=== PATIENT | male | born 1930 | race African-American/Black ===

== ENCOUNTER 2017-03-03 06:11 | Day surgery (SDC) | payer MEDICARE, OTHER ==
--- NOTE | 2017-03-01 19:30 | Pre-op HX & Phy Repo 2 SIG ---
DATE OF ADMISSION: 03/03/2017 PREOPERATIVE DIAGNOSIS: Total retinal detachment, left eye. BRIEF NOTE: This is a first [place] admission for this patient, who is an 86-year-old gentleman, who complained of decreased vision in the left eye for the last week. On examination, he was found to have a dense total retinal detachment on that side. His past ocular history is remarkable for cataract surgery done previously in either eye. PAST MEDICAL HISTORY: Remarkable for diabetes and hypertension. MEDICATIONS: He is currently on gabapentin, Lantus Solostar, and NovoLog as well as antihypertensive medications. ALLERGIES: He has no known allergies. Physical Examination: Best vision at the time of admission was 20/70 in the right eye and hand motions in the left with pressures of 15 and 7. The anterior segment on the right was quiet with posterior chamber lens. On the left, there was significant loss of peripheral visual field. The anterior segment showed a lens implant in position. Fundus examination of the right eye appeared normal. The left eye showed a total retinal detachment with extensive subretinal fluid. There was a horseshoe tear at the 6:30 position. General physical examination will be performed by the patient's private medical doctor. ASSESSMENT: Total retinal detachment, left eye. PLAN: The plan is to perform a pars plana vitrectomy with scleral buckling, endo drainage, endolaser, and either placement of silicone oil intraocular gas. The risks and benefits of surgery gone over the patient and his family including potential for infection, inability to repair the retina, glaucoma, and the possibility of loss of the eye. The risk of anesthesia was discussed. The patient understands and consents to the surgery, which will be performed on Friday. Simone Coned M.D. DR: DONNELL JOB#: [id number] CC:
[~2017-03-03] VITALS: Ht 157.5 cm; Wt 67.1 kg
[2017-03-03] VITALS (9 sets, daily range): BP systolic 145–163; BP diastolic 61–75
--- NOTE | 2017-03-03 06:24 | Pre-Procedure Note/Attestation ---
Pre-Procedure Note/Attestation Complete Prior to Procedure Planned Procedure: left Procedure Narrative: PPV, scleral buckle, endolaser, silicone oil injection L eye Indications for Procedure Pre-Operative Diagnosis: Total retinal detachment Left eye Attestation I attest that I discussed the nature of the procedure; its benefits; risks and complications; and alternatives (and the risks and benefits of such alternatives ), prior to the procedure, with the patient (or the patient's legal scheduling representative). I attest that, if there was a reasonable possibility of needing a blood transfusion, the patient (or the patient's legal scheduling representative) was given the [facility] standardized written summary, pursuant to the [place] Blood Safety Act ([place] Health and Safety Code # 1645, as amended). I attest that I re-evaluated the patient just prior to the surgery and that there has been no change in the patient's H&P, except as documented below: SEGUNDO IGLESIAS Mar 03, 2017 06:24
[2017-03-03] MEDS ORDERED: Pred Forte 1% Opth Susp 1ml RIGHT EYE ONE (07:00)
[2017-03-03] MEDS ORDERED: Povidone-Iodine 5% opth solution ONE (07:07)
[2017-03-03] MEDS ORDERED: GABAPENTIN100 MG ORAL (07:13)
[2017-03-03] MEDS ORDERED: FUROSEMIDE40 MG ORAL (07:13)
[2017-03-03] MEDS ORDERED: APRESOLINE10 MG ORAL (07:13)
[2017-03-03] MEDS ORDERED: LISINOPRIL40 MG ORAL (07:13)
[2017-03-03] MEDS ORDERED: Cyclopentolate 1% Opth Sol ONE (07:15)
[2017-03-03] MEDS ORDERED: Phenylephrine 2.5% Op Soln ONE (07:16)
[2017-03-03] MEDS ORDERED: Flurbiprofen 0.03% Opth Sol 2.5ml ONE (07:16)
[2017-03-03] MEDS ORDERED: Vigamox Opth Soln ONE (07:22)
[2017-03-03] MEDS: Vigamox Opth Soln LEFT EYE SCH ×3 (07:23→07:38)
[2017-03-03] MEDS: Phenylephrine 2.5% Op Soln LEFT EYE SCH ×3 (07:24→07:38)
[2017-03-03] MEDS: Cyclopentolate 1% Opth Sol LEFT EYE SCH ×3 (07:24→07:39)
[2017-03-03] MEDS: Flurbiprofen 0.03% Opth Sol 2.5ml LEFT EYE SCH ×3 (07:24→07:38)
[2017-03-03] MEDS ORDERED: LANTUS SOL100 UNIT/1 SUBQ (07:37)
[2017-03-03] MEDS ORDERED: NOVOLOG100 UNIT/3 SUBQ (07:37)
[2017-03-03] MEDS ORDERED: PREDNISONE20 M1 PO (07:38)
[2017-03-03] MEDS ORDERED: SENNA8.6 M2 PO (07:38)
[2017-03-03] MEDS ORDERED: Propofol 10mg/ml 20ml IV ONE (08:00)
[2017-03-03] MEDS ORDERED: NS Irrig 1000ml ONE (08:00)
[2017-03-03] MEDS ORDERED: Sterile Water Irrig 1000ml IRRIG ONE (08:00)
[2017-03-03] MEDS ORDERED: Midazolam 2mg/2ml Inj ONE (08:00)
[2017-03-03] MEDS ORDERED: LR 1000ml ONE (08:00)
[2017-03-03] MEDS ORDERED: LR 1000ml 1,000 ML IVLG SCH (09:27)
[2017-03-03] MEDS ORDERED: fentaNYL 100 mcg/2 mL IV PRN (09:30)
--- NOTE | 2017-03-03 09:35 | Anethesia Preoperative Eval ---
Anesthesia Pre-op PMH/ROS General Date of Evaluation: Mar 03, 2017 Time of Evaluation: 08:51 Anesthesiologist: Bari ASA Score: ASA 3 Mallampati Score Class I : Soft palate, uvula, fauces, pillars visible Class II: Soft palate, uvula, fauces visible Class III: Soft palate, base of uvula visible Class IV: Only hard plate visible Mallampati Classification: Class II Surgeon: Amaya Diagnosis: Retinal detachment left eye Surgical Procedure: Vitrectomy, scleral buckle, endolaser Family History: no anesthesia problems Allergies: Coded Allergies: No Known Allergies (Unverified , 02/28/17) Medications: see eMAR Past Medical History Cardiovascular: Reports: HTN, arrhythmia - Atrial tachycardia, other - Episode of fluid overlode thought to be secondary to Amlodipine Pulmonary: Denies: COPD, DEBORAH, asthma, other Gastrointestinal/Genitourinary: Denies: CRI, ESRD, GERD, other Neurologic/Psychiatric: Denies: CVA, TIA, dementia, depression/anxiety, other Endocrine: Reports: DM, Denies: hypothyroidism, other, steroids HEENT: Denies: [place] (L), CROW (R), cataract (L), cataract (R), glaucoma, other Hematology/Immune: Denies: DVT, anemia, bleeding disorder, other Musculoskeletal/Integumentary: Denies: DDD, DJD, OA, RA, edema, other PMH Narrative: DM, HTN, Atrial tachycardia, fluid overload, Pemphigus Foliaceous PSxH Narrative: Eye surgery, colonoscopy/polypectomy Anesthesia Pre-op Phys. Exam Physician Exam Last Vital Signs Date Time Temp Pulse Resp B/P Pulse Ox O2 Delivery O2 Flow Rate FiO2 03/03/17 07:19 97.0 69 20 145/70 98 Room Air Constitutional: NAD Neurologic: other - Hearing impaired Cardiovascular: RRR, no M/R/G Respiratory: CTA Gastrointestinal: S/NT/ND Airway Exam Mallampati Score: Class II MO: full ROM: full Teeth: intact Anesthesia Pre-op A/P Labs Elevated blood glucose Accucheck 128 Studies Pre-op Studies: EKG - SR, no acute changes Risk Assessment & Plan Assessment: Retinal tear in a diabetic, hypertensive 87 yo male Plan: MAC, TIVA Status Change Before Surgery: No Pre-Antibiotics Drug: None KYRA MAY M.D. Mar 03, 2017 09:35
--- NOTE | 2017-03-03 09:36 | Immediate Post-Op Evaluation ---
Immediate Post-Op Evalulation Immediate Post-Op Evalulation Procedure: Vitrectomy, scleral buckle, endolaser left eye Date of Evaluation: Mar 03, 2017 Time of Evaluation: 11:00 IV Fluids: 300 Blood Pressure Systolic: 154 Blood Pressure Diastolic: 69 Pulse Rate: 73 Respiratory Rate: 18 O2 Sat by Pulse Oximetry: 100 Temperature (Fahrenheit): 97.1 Pain Score (1-10): 0 Nausea: No Vomiting: No Complications No complication Patient Status: awake, patent, none Hydration Status: adequate Drug: None KYRA MAY M.D. Mar 03, 2017 09:36
[2017-03-03] MEDS ORDERED: BSS 500ml btl ONE ×2 (10:02→11:11)
[2017-03-03] MEDS ORDERED: EPINEPHrine 1mg/1ml Amp ONE ×2 (10:02→11:12)
[2017-03-03] MEDS ORDERED: Pilocarpine 4% Opth Soln ONE (10:43)
--- NOTE | 2017-03-03 11:06 | 48 Hour Post Anesthesia Eval ---
Post Anesthesia Evaluation Procedure: Vitrectomy, scleral buckle, endolaser left eye Date of Evaluation: Mar 03, 2017 Time of Evaluation: 11:30 Blood Pressure Systolic: 155 0: 68 Pulse Rate: 77 Respiratory Rate: 17 O2 Sat by Pulse Oximetry: 99 Airway: patent Nausea: No Vomiting: No Pain Intensity: 0 Hydration Status: adequate Cardiopulmonary Status: stable Follow-up Care/Observations: As per surgery Post-Anesthesia Complications: No anesthetic complication Follow-up care needed: N/A KYRA MAY M.D. Mar 03, 2017 11:06
--- NOTE | 2017-03-03 11:09 | Brief Operative Note ---
Immediate Post Operative Note Operative Note Chief Complaint: Loss of vision L eye Pre-op Diagnosis: Total retinal detachment Left eye Procedure: PPV, scleral buckle (240, 297, 70 sleeve), Endolaser 487 spots, endodrainage, Silicone oil injection 1000 centistokes, iris retractor placement and removal L eye Post-op Diagnosis: Same Post-op Diagnosis: same as pre-op Surgeon: aviva Anesthesiologist: Agustín Anesthesia: MAC Specimen: none Complications: none Condition: stable Estimated Blood Loss: none Drains: none Implant(s) used?: Yes - 287, 240. 70 plus 1000 CS silicone oil SEGUNDO IGLESIAS Mar 03, 2017 11:09
[2017-03-03] MEDS ORDERED: Dexamethasone 4mg/ml vial ONE (11:12)
[2017-03-03] MEDS ORDERED: BSS 15ml BTL ONE (11:12)
[2017-03-03] MEDS ORDERED: Bupivacaine 0.75% 30ml vial INJ ONE (11:12)
[2017-03-03] MEDS ORDERED: Maxitrol Opth Oint 3.5gm ONE (11:12)
[2017-03-03] MEDS ORDERED: Sodium Hyaluronate 10 mg/ml 0.85ml ONE (11:12)
[2017-03-03] MEDS ORDERED: Lidocaine 2% MPF 5ml Vial INJ ONE (11:12)
[2017-03-03] MEDS ORDERED: LR 1000ml 1,000 ML IV SCH (11:27)
[2017-03-03] MEDS ORDERED: Norco 5mg/325mg tab ORAL PRN (14:00)
--- NOTE | 2017-03-03 16:45 | Operative Note - Dictated ---
DATE OF OPERATION: 03/03/2017 PREOPERATIVE DIAGNOSIS: Total retinal detachment, left eye. POSTOPERATIVE DIAGNOSIS: Total retinal detachment, left eye. PROCEDURES PERFORMED: 1. Pars plana vitrectomy. 2. Scleral buckle. 3. Iris retractor placement and removal. 4. Endo drainage. 5. Peripheral cryopexy. 6. Endolaser. 7. Silicone oil injection, left eye. SURGEON: Simone Conde M.D. ASSEMBLER TYPE BAR AND SEGMENT: None. ANESTHESIA: Local. ANESTHESIOLOGIST: Dr. Randolph. JUSTIFICATION FOR SURGERY: This 86-year-old gentleman presented last week with a total retinal detachment in the left eye. BRIEF NOTE: The patient brought to the operative room, placed on operating room table in supine position. After a time-out was performed and agreed upon by the staff, an initial monitoring secured by Dr. Randolph, retrobulbar and Van Lint blocks were given in the standard way. When the blocks taken effect, he was prepped and draped in normal manner. A lid speculum was inserted in to the left eye. A 360-degree peritomy was then cut with relaxation incisions at the 3 and 9 o'clock positions. The muscles were isolated and turned on white and black ties. The quadrants were explored and found to be without scleral thinning. Because of the small pupil, iris retractors were placed at the four major quadrant and the chamber deepened with Healon. Using indirect ophthalmoscope, the eye was examined and a large horseshoe tear was found at the 6:30 position. This was marked on the sclera and gentle cryopexy was used to treat the open break. Sutures were then prepared for a scleral buckle. A 5-0 nylon mattress sutures were placed 6 mm apart in both inferior quadrants in compensating the tear and 2 and 3 mm apart up above. A 240 band was brought around the eye and secured with a 70 sleeve supranasally. A segment of 287 tire was placed beneath the inferior rectus muscle and the two mattress sutures and secured. All other knots were secured and rotated posteriorly and the buckle was tightened to moderate height. The eye was then entered with the vitrector and a central core vitrectomy was performed followed by peripheral vitrectomy shaving vitreous clean the inferior break. A site was selected for endo drainage just nasal to the optic nerve and this was cauterized. An air-fluid exchange was then performed, flattening the retina nicely with drainage through the posterior retinotomy. The retinal tear was noted to nicely flatten on the buckle and additional laser was placed to completely surround this area and another suspicious area at the 5 o'clock position. No other breaks were seen. The retinotomy was then surrounded by three rows of laser. Because of the inferior nature of the location of the break and the patient's age and poor ability to position, a gas bubble was elected to place silicone oil. One thousand centistokes oil was chosen and the eye was filled to roughly 95% and the left in normal tension. The sclerotomies were then all closed with 8-0 Vicryl suture. The ends of the buckle were trimmed after final removal of looseness from the encircling band. Iris retractors were also removed as was Healon, which was evacuated from the anterior chamber. All bridle sutures were removed and the conjunctiva and tenons were secured with 6-0 plain catgut, interrupted. Subconjunctival Decadron and gentamicin were then injected and Maxitrol, pilocarpine 4%, and prednisolone drops were instilled. The eye was patched and shielded and the patient was taken to recovery in excellent condition to be placed in a face-down position. Simone Conde M.D. DR: VENANCIO JOB#: [id number] CC:
== END 2017-03-03 13:00 | disposition home or self-care (01) ==
LOC: SUR 06:11
DX: H33.012 Retinal detachment with single break, left eye (principal); E11.9 Type 2 diabetes mellitus without complications; Z79.4 Long term (current) use of insulin; I10 Essential (primary) hypertension; I47.1 Supraventricular tachycardia; L10.2 Pemphigus foliaceous; E78.5 Hyperlipidemia, unspecified; D89.9 Disorder involving the immune mechanism, unspecified; Z85.46 Personal history of malignant neoplasm of prostate
CPT/HCPCS: 67108; 82962; J0171; J1100; J2250; J2704; J3470; J3490; J7120; 94003; 94150

== ENCOUNTER 2017-04-02 06:42 | Day surgery (SDC) | payer MEDICARE, OTHER ==
[~2017-04-02] VITALS: Ht 165.1 cm; Wt 72.6 kg
[2017-04-02] VITALS (8 sets, daily range): BP systolic 127–142; BP diastolic 53–87
--- NOTE | 2017-04-02 06:41 | Pre-Procedure Note/Attestation ---
Pre-Procedure Note/Attestation Complete Prior to Procedure Planned Procedure: left Procedure Narrative: PPV, silicone oil removal and replacement, endolaser, membrane peel, revision of scleral buckle L eye. 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 I attest that, if there was a reasonable possibility of needing a blood transfusion, the patient (or the patient's legal inbound sales representative) was given the [place] [facility] standardized written summary, pursuant to the Eddie [place] Blood Safety Act ([place] Health and Safety Code # 1645, as amended). I attest that I re-evaluated the patient just prior to the surgery and that there has been no change in the patient's H&P, except as documented below: SEGUNDO IGLESIAS Apr 02, 2017 06:41
[~2017-04-02 06:42] MED LIST: APRESOLINE10 MG ORAL; FUROSEMIDE40 MG ORAL; GABAPENTIN100 MG ORAL; LANTUS SOL100 UNIT/1 SUBQ; LISINOPRIL40 MG ORAL; NOVOLOG100 UNIT/3 SUBQ; PREDNISONE20 M1 PO; Pred Forte 1% Opth Susp 1ml LEFT EYE SCH; SENNA8.6 M2 PO
[2017-04-02] MEDS ORDERED: Vigamox Opth Soln ONE (06:56)
[2017-04-02] MEDS ORDERED: Phenylephrine 2.5% Op Soln ONE (06:57)
[2017-04-02] MEDS ORDERED: Cyclopentolate 1% Opth Sol ONE (06:57)
[2017-04-02] MEDS ORDERED: Flurbiprofen 0.03% Opth Sol 2.5ml ONE (06:57)
[2017-04-02] MEDS: Phenylephrine 2.5% Op Soln LEFT EYE SCH ×3 (07:14→07:28)
[2017-04-02] MEDS: Flurbiprofen 0.03% Opth Sol 2.5ml LEFT EYE SCH ×3 (07:15→07:28)
[2017-04-02] MEDS: Vigamox Opth Soln LEFT EYE SCH ×3 (07:15→07:28)
[2017-04-02] MEDS: Cyclopentolate 1% Opth Sol LEFT EYE SCH ×3 (07:15→07:28)
[2017-04-02] MEDS ORDERED: BSS 15ml BTL ONE ×2 (07:21→10:14)
[2017-04-02] MEDS ORDERED: Povidone-Iodine 5% opth solution ONE (07:21)
[2017-04-02] MEDS ORDERED: BSS 500ml btl ONE (07:21)
--- NOTE | 2017-04-02 08:30 | Pre-op HX & Phy Repo 2 SIG ---
DATE OF ADMISSION: 04/02/2017 POSTOPERATIVE DIAGNOSIS: Recurrent retinal detachment, left eye. BRIEF NOTE: This is a second [place] admission for this patient, who is a very nice 86-year-old gentleman, who was noted to have a significant retinal detachment in the left eye. This was initially repaired on 03/03/2017 with silicone oil. Subsequent to this, he developed an area of preretinal fibrosis and elevation of the retina down below. He is admitted for repeat vitrectomy with retinotomy and repair of the recurrent detachment. PAST MEDICAL HISTORY: Remarkable for diabetes and hypertension. ALLERGIES: He has no known allergies. SOCIAL HISTORY: He does not smoke or drink. PHYSICAL EXAMINATION: Best vision at the time of the visit was 20/50 in the right eye and counting fingers at 5 feet in the left eye with pressures in the left to be 11. The anterior segment on the right was remarkable for posterior chamber lens, well positioned. The left showed a similar lens. Fundus exam of the right eye was benign. The left eye showed recurrent fluid and an area of star-fold formation just below the arcade with the fluid extending up to below the arcade with open breaks above the buckle. General physical examination will be repeated by the patient's personal physician. ASSESSMENT: Recurrent retinal detachment, left eye silicone oil. PLAN: The plan is to perform a repeat pars plana vitrectomy with peeling of preretinal fibrosis and possible inferior retinotomy with flattening of the retina and additional silicone oil. The risks and benefits of surgery were gone over with the patient and family including potential infection, hemorrhage, glaucoma, the inability to repair the retina, and the possibility of loss of the eye. The risk of anesthesia was discussed. The patient understands and consents to the surgery, which will be performed on tomorrow morning. Simone Conde M.D. DR: GA JOB#: [id number] CC:
[2017-04-02] MEDS ORDERED: Propofol 10mg/ml 20ml IV ONE (10:00)
[2017-04-02] MEDS ORDERED: Metoclopramide 10mg/2ml Inj ONE (10:00)
[2017-04-02] MEDS ORDERED: Solu-MEDROL 40mg Inj ONE (10:00)
[2017-04-02] MEDS ORDERED: Lidocaine 1% MPF 10mg/ml 5ml ONE (10:00)
[2017-04-02] MEDS ORDERED: LR 1000ml ONE (10:00)
[2017-04-02] MEDS ORDERED: fentaNYL 100 mcg/2 mL IV ONE (10:00)
[2017-04-02] MEDS ORDERED: Norco 5mg/325mg tab ORAL PRN (10:15)
--- NOTE | 2017-04-02 11:13 | Anethesia Preoperative Eval ---
Anesthesia Pre-op PMH/ROS General Date of Evaluation: Apr 02, 2017 Time of Evaluation: 11:12 Anesthesiologist: miroslava ASA Score: ASA 2 Mallampati Score Class I : Soft palate, uvula, fauces, pillars visible Class II: Soft palate, uvula, fauces visible Class III: Soft palate, base of uvula visible Class IV: Only hard plate visible Mallampati Classification: Class II Anesthesia History: none Family History: no anesthesia problems Allergies: Coded Allergies: No Known Allergies (Unverified , 02/28/17) Medications: see eMAR Past Medical History Cardiovascular: Reports: HTN, arrhythmia Pulmonary: Denies: asthma, COPD, DEBORAH, other Gastrointestinal/Genitourinary: Denies: GERD, CRI, ESRD, other Neurologic/Psychiatric: Denies: dementia, CVA, depression/anxiety, TIA, other Endocrine: Reports: DM HEENT: Reports: [place] (L), other - retinal detachment Hematology/Immune: Denies: anemia, DVT, bleeding disorder, other PSxH Narrative: vitrectomy Anesthesia Pre-op Phys. Exam Physician Exam Last Vital Signs Date Time Temp Pulse Resp B/P (MAP) Pulse Ox O2 Delivery O2 Flow Rate FiO2 04/02/17 07:25 98.2 62 19 136/64 99 Room Air Constitutional: NAD Neurologic: CN 2-12 intact Cardiovascular: RRR Respiratory: CTA Gastrointestinal: S/NT/ND Airway Exam Mallampati Score: Class II MO: full ROM: full Dentures: no upper, no lower Anesthesia Pre-op A/P Labs Accucheck bs= 166 Studies Pre-op Studies: EKG - sr Risk Assessment & Plan Plan: general - case projected to be 2 hours Status Change Before Surgery: No Pre-Antibiotics Drug: none MARIA CRISHIVANI LEWIS ADMINISTRATION PHYSICIAN Apr 02, 2017 11:13
--- NOTE | 2017-04-02 12:23 | Immediate Post-Op Evaluation ---
Immediate Post-Op Evalulation Immediate Post-Op Evalulation Procedure: left eye vitrectomy Date of Evaluation: Apr 02, 2017 Time of Evaluation: 12:19 IV Fluids: 800 Blood Pressure Systolic: 170 Blood Pressure Diastolic: 60 Pulse Rate: 67 Respiratory Rate: 17 O2 Sat by Pulse Oximetry: 100 Temperature (Fahrenheit): 97.2 Nausea: No Vomiting: No Complications none Patient Status: awake, reacts, patent Hydration Status: adequate Drug: none TARRILLION,SHIVANI CLINICAL ADMINISTRATOR Apr 02, 2017 12:23
--- NOTE | 2017-04-02 13:47 | 48 Hour Post Anesthesia Eval ---
Post Anesthesia Evaluation Procedure: left eye vitrectomy Date of Evaluation: Apr 02, 2017 Time of Evaluation: 13:47 Blood Pressure Systolic: 127 0: 70 Pulse Rate: 67 Respiratory Rate: 14 O2 Sat by Pulse Oximetry: 99 Airway: patent Nausea: No Vomiting: No Hydration Status: adequate Cardiopulmonary Status: stable Mental Status/LOC: patient returned to baseline Post-Anesthesia Complications: none Follow-up care needed: N/A SHIVANI MICHELLE CRNA Apr 02, 2017 13:47
[2017-04-02] MEDS ORDERED: Dexamethasone 4mg/ml vial ONE (13:56)
[2017-04-02] MEDS ORDERED: Tetracaine 0.5% Opth Soln ONE (13:56)
[2017-04-02] MEDS ORDERED: Bupivacaine 0.75% 30ml vial INJ ONE (13:57)
[2017-04-02] MEDS ORDERED: EPINEPHrine 1mg/1ml Amp ONE (13:57)
[2017-04-02] MEDS ORDERED: Lidocaine 2% MPF 5ml Vial INJ ONE (13:57)
[2017-04-02] MEDS ORDERED: Maxitrol Opth Oint 3.5gm ONE (13:58)
[2017-04-02] MEDS ORDERED: Sodium Hyaluronate 10 mg/ml 0.85ml ONE (13:59)
--- NOTE | 2017-04-03 10:00 | Brief Operative Note ---
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
[2017-04-03] MEDS ORDERED: DOCUSATE SODIU100 MG ORAL (12:39)
[2017-04-03] MEDS ORDERED: FERROUS SULFAT325 MG ORAL (12:39)
[2017-04-03] MEDS ORDERED: VITAMIN D1000 UNI1 ORAL (12:39)
--- NOTE | 2017-04-04 10:45 | Operative Note - Dictated ---
DATE OF OPERATION: 04/02/2017 PREOPERATIVE DIAGNOSIS: Recurrent retinal detachment with PVR, left eye. POSTOPERATIVE DIAGNOSIS: Recurrent retinal detachment with PVR, left eye. PROCEDURES: 1. Pars plana vitrectomy. 2. Revision of scleral buckle. 3. Removal and replacement of silicone oil. 4. Membrane dissection. 5. Endolaser, left eye. SURGEON: Simone Conde M.D. COMMISSIONS MANAGER: None. ANESTHESIA: LMA general. ANESTHESIOLOGIST: Janna GARCIA. Justification For Surgery: This 86-year-old gentleman presented last month with a retinal detachment with 01:09. The vitrectomy was performed, but the hole reopened due to traction and early PVR. He is admitted for repair. BRIEF NOTE: The patient was brought to the operative room, placed on operating room table in the supine position. After discussion with nurse Stanton regarding the planned procedure and the duration, it was elected to proceed with LMA general anesthesia which the patient was informed of. After a time-out was performed and agreed upon by the staff, anesthesia was induced by the anesthesia person. The patient was then prepped and draped in the normal manner. Scleral depression was done. An open retinal break was noted down below with areas of traction. It was elected to reposition the scleral buckle. A 200-degree peritomy was performed with relaxation incisions at 10 and 2. Careful dissection was carried out with both horizontal recti and the inferior rectus muscle isolated. Sutures were placed to reposition the buckle roughly 5 mm more posteriorly down below. The original sutures were removed and the buckle was sewn into this position with moderately high buckling effect. The holes were examined and found to be well on the crest of the buckle. Preparation was made for a vitrectomy. Using a 23-gauge trocar system, cannulas were placed in all except the infranasal quadrant. Infusion secured inferotemporally. Attempt was made to peel membranes beneath the silicone oil but this was met with limited success. It was elected to remove oil and proceed. This was done with the viscous fluid extractor. Areas of preretinal fibrosis and the inferior retina were gently dissected away and removed with forceps. The vitreous cutter was also used to shave residual vitreous flush with the retina itself. The retina was noted to be freely mobile at this point. The areas of breaks were marked with Endo cautery, and also an area selected just nasal to the optic nerve for endo drainage. An air-fluid exchange was performed and the retina was noted to flattened nicely on the buckle. Endolaser was used to surround the areas of the retinal break and also form the barricade along the inferior buccal. Additional laser was used to treat around the posterior retinotomy. At this juncture, silicone oil injection was performed and the pressure was normalized with about a 95% oil filled and the retina remaining soft. The sclerotomies have been closed with 8-0 Vicryl suture after the cannulas were removed. The conjunctiva and tenons capsule were gently pulled up and secured with 6-0 plain catgut. Subconjunctival Decadron and gentamicin were injected inferiorly and topical atropine, prednisolone, and moxifloxacin drops were instilled. Maxitrol ointment was then was then placed in the eye was patched and shielded. The patient was taken to recovery after smooth extubation in excellent condition. He was to be in face-down position. Please note that a total of 05:01 laser 05:03 were applied. Simone Conde M.D. DR: FELISHA JOB#: [id number] CC:
== END 2017-04-02 14:20 | disposition home or self-care (01) ==
LOC: SUR 06:42
DX: H33.8 Other retinal detachments (principal); E11.9 Type 2 diabetes mellitus without complications; I10 Essential (primary) hypertension; I49.9 Cardiac arrhythmia, unspecified; H91.90 Unspecified hearing loss, unspecified ear
CPT/HCPCS: 82962; 94003; 94150; J2405; J2765

== ENCOUNTER 2017-04-03 11:49 | Inpatient (IN) | payer MEDICARE, OTHER ==
[~2017-04-03] VITALS: Ht 165.1 cm; Wt 81.6 kg
[2017-04-03] VITALS (10 sets, daily range): BP systolic 114–184; BP diastolic 41–72
[~2017-04-03 11:49] MED LIST changes: -Pred Forte 1% Opth Susp 1ml LEFT EYE SCH
[2017-04-03] MEDS ORDERED: VITAMIN D1000 UNI1 ORAL (12:39)
[2017-04-03] MEDS ORDERED: FERROUS SULFAT325 MG ORAL (12:39)
[2017-04-03] MEDS ORDERED: DOCUSATE SODIU100 MG ORAL (12:39)
[2017-04-03 12:46] LABS: MEAN CORPUSCULAR HEMOGLOBIN 29.7 PG (27.0-31.0); MEAN CORPUSCULAR HGB CONC 32.6 G/DL (32.0-36.0); MEAN CORPUSCULAR VOLUME 91 FL (80-99); MEAN PLATELET VOLUME 8.1 FL (6.5-10.1); PLATELET COUNT 140 K/UL (150-450); RED BLOOD COUNT 4.05 M/UL (4.70-6.10); RED CELL DISTRIBUTION WIDTH 14.3 % (11.6-14.8); WHITE BLOOD COUNT 8.4 K/UL (4.8-10.8)
[2017-04-03 13:04] LABS: ALANINE AMINOTRANSFERASE 15 U/L (3-41); ALBUMIN/GLOBULIN RATIO 1.2 (1.0-2.7); ANION GAP 12 (5-15); ASPARTATE AMINO TRANSFERASE 22 U/L (5-40); CALCIUM 9.3 mg/dL (8.6-10.2); CARBON DIOXIDE 24 mEQ/L (20-30); CHLORIDE 95 mEQ/L (98-107); CREATININE 0.8 mg/dL (0.7-1.2); HEMOLYSIS 54; LIPASE 19 U/L (< 60); POTASSIUM 4.3 mEQ/L (3.4-4.9); SODIUM 131 mEQ/L (135-145); TOTAL PROTEIN 6.3 g/dL (6.6-8.7); TROPONIN I < 0.30 ng/mL (<=0.30)
--- NOTE | 2017-04-03 13:14 | Diagnostic Imaging Report ---
Indication: PAIN cough Technique: One view of the chest Comparison: none Findings: Inspiration is suboptimal, with atelectatic changes at both lung bases. Lungs and pleural spaces are otherwise clear. Heart is borderline enlarged. There are is tortuous.. Impression: Hypoventilatory exam with bilateral basilar atelectasis No acute process otherwise Borderline cardiomegaly
[2017-04-03 13:23] LABS: LYMPHOCYTES % (MANUAL) 13 % (20-45); NEUTROPHILS % (MANUAL) 81 % (45-75); TOTAL CELLS COUNTED 100
[2017-04-03 13:24] LABS: BAND NEUTROPHILS % (MANUAL) 0 % (0-8); BASOPHILS % (MANUAL) 0 % (0-2); EOSINOPHILS % (MANUAL) 0 % (0-3); PLATELET MORPHOLOGY NORMAL
[2017-04-03 13:26] LABS: PLATELET ESTIMATE DECREASED
--- NOTE | 2017-04-03 13:34 | Emergency Room Report ---
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 History is provided mostly by patient's daughters. Daughter states that patient has had decreased by mouth intake for the last 3 days. Mild nausea and about one episode of vomiting per day nonbilious nonbloody. No diarrhea. No fever or chills. Yesterday patient had a left eye surgery for retinal detachment. This morning patient woke up with a mild headache, they went to the selling specialist who examined the patient and took his eye pressures, was found to be normal, and was sent to the emergency room. Patient complaining of mild throbbing headache , gradual in nature, no exacerbating or relieving factors. Daughter states that patient has not been confused, has still been conversing appropriately, there was no trauma. Currently denying any abdominal pain Allergies: Coded Allergies: No Known Allergies (Unverified , 02/28/17) Patient History Past Medical History: see triage record Past Surgical History: none Pertinent Family History: none Reviewed Nursing Documentation: PMH: Agreed, PSxH: Agreed Nursing Documentation-PMH Past Medical History: No History, Except For Hx Cardiac Problems: Yes Hx Hypertension: Yes Hx Diabetes: Yes Hx Cancer: No Review of Systems All Other Systems: negative except mentioned in HPI Physical Exam Vital Signs Date Time Temp Pulse Resp B/P (MAP) Pulse Ox O2 Delivery O2 Flow Rate FiO2 04/03/17 11:41 68 18 206/72 94 Room Air Sp02 EP Interpretation: reviewed, normal General Appearance: normal inspection, well appearing, no apparent distress, alert, GCS 15, non-toxic Head: normocephalic, atraumatic Eyes: bilateral eye normal inspection, bilateral eye PERRL, bilateral eye EOMI ENT: normal ENT inspection, normal pharynx, normal voice, moist mucus membranes Neck: normal inspection, full range of motion, supple Respiratory: normal inspection, lungs clear, normal breath sounds, no respiratory distress, no retraction, no wheezing, speaking full sentences, chest symmetrical Cardiovascular #1: normal inspection, regular rate, rhythm, no edema, normal capillary refill Cardiovascular #2: 2+ radial (R), 2+ radial (L) Gastrointestinal: normal inspection, non tender, soft, non-distended, no guarding Genitourinary: no CVA tenderness Musculoskeletal: normal inspection, back normal, normal range of motion, non- tender Neurologic: normal inspection, alert, oriented x3, responsive, motor strength/ tone normal, sensory intact, normal gait, speech normal Psychiatric: normal inspection, judgement/insight normal, memory normal Skin: normal inspection, normal color, no rash, warm/dry, well hydrated, normal turgor Medical Decision Making Diagnostic Impression: Primary Impression: Decreased oral intake Additional Impressions: Dehydration Headache ER Course 86 yo male with decreased oral intake, one day of headache DDX: Electrolyte imbalance, dehydration Headache could be related to above versus intracranial disease Currently patient is neurologically intact At this time abdomen is soft nontender, no concern with acute intra-abdominal surgical pathology, we'll hold CT for now Plan: Obtain labs, ua, EKG, CXR, CT head ER course: afeb 98.4 Patient has been monitored during ED stay, HD stable Patient was treated for his headache with Tylenol, patient was given IV fluids Patient remains neurologically intact, conversing appropriately with his daughters. Disposition: Patient is to be admitted to med surg. Patient's selling specialist sent in Dr. Franks who is on staff at [facility]. Dr. franks said that he will be admitting patient. Please note that this Emergency Department Report was dictated using [email or web address] press operator technology software, occasionally this can lead to erroneous entry secondary to interpretation by the dictation equipment. Laboratory Tests Test 04/03/17 12:10 04/03/17 12:31 White Blood Count 8.4 K/UL (4.8-10.8) Red Blood Count 4.05 M/UL (4.70-6.10) L Hemoglobin 12.0 G/DL (14.2-18.0) L Hematocrit 36.9 % (42.0-52.0) L Mean Corpuscular Volume 91 FL (80-99) Mean Corpuscular Hemoglobin 29.7 PG (27.0-31.0) Mean Corpuscular Hemoglobin Concent 32.6 G/DL (32.0-36.0) Red Cell Distribution Width 14.3 % (11.6-14.8) Platelet Count 140 K/UL (150-450) L Mean Platelet Volume 8.1 FL (6.5-10.1) Neutrophils (%) (Auto) % (45.0-75.0) Lymphocytes (%) (Auto) % (20.0-45.0) Monocytes (%) (Auto) % (1.0-10.0) Eosinophils (%) (Auto) % (0.0-3.0) Basophils (%) (Auto) % (0.0-2.0) Differential Total Cells Counted 100 Neutrophils % (Manual) 81 % (45-75) H Lymphocytes % (Manual) 13 % (20-45) L Monocytes % (Manual) 6 % (1-10) Eosinophils % (Manual) 0 % (0-3) Basophils % (Manual) 0 % (0-2) Band Neutrophils 0 % (0-8) Platelet Estimate Decreased L Platelet Morphology Normal Red Blood Cell Morphology Normal Sodium Level 131 mEQ/L (135-145) L Potassium Level 4.3 mEQ/L (3.4-4.9) Chloride Level 95 mEQ/L (98-107) L Carbon Dioxide Level 24 mEQ/L (20-30) Anion Gap 12 (5-15) Blood Urea Nitrogen 25 mg/dL (7-23) H Creatinine 0.8 mg/dL (0.7-1.2) Estimate Glomerular Filtration Rate mL/min (>60) Glucose Level 247 mg/dL (74-106) H Calcium Level 9.3 mg/dL (8.6-10.2) Total Bilirubin 0.6 mg/dL (0.0-1.2) Aspartate Amino Transferase (AST) 22 U/L (5-40) Alanine Aminotransferase (ALT) 15 U/L (3-41) Alkaline Phosphatase 46 U/L (40-129) Troponin I < 0.30 ng/mL (<=0.30) Total Protein 6.3 g/dL (6.6-8.7) L Albumin 3.5 g/dL (3.5-5.2) Globulin 2.8 g/dL Albumin/Globulin Ratio 1.2 (1.0-2.7) Lipase 19 U/L (< 60) EKG Diagnostic Results Rate: normal Rhythm: NSR ST Segments: other - Q waves inf leads ASA given to the pt in ED: No Rhythm Strip Diag. Results EP Interpretation: yes Rate: 67 Rhythm: NSR, no PVC's, no ectopy Chest X-Ray Diagnostic Results Chest X-Ray Diagnostic Results : Chest X-Ray Ordered: Yes # of Views/Limited/Complete: 1 View Indication: Other EP Interpretation: Yes Interpretation: other - possile R sided infiltrate Impression: Other - possible R sided infiltrate / pulm vasc congestion vs. pneumonia Electronically Signed by: Electronically signed by Laura Monsalve MD CT/MRI/US Diagnostic Results CT/MRI/US Diagnostic Results : Imaging Test Ordered: CT head Impression chronic/age related changes no acute intracrnial bleed or mass effect Electronically signed by Laura Monsalve MD Last Vital Signs Date Time Temp Pulse Resp B/P (MAP) Pulse Ox O2 Delivery O2 Flow Rate FiO2 04/03/17 12:41 66 20 184/72 100 Room Air Disposition: ADMITTED INPATIENT Condition: Serious Referrals: NOT CHOSEN CONCEPCION/,REFERRING (PCP) Laura Monsalve M.D. Apr 03, 2017 13:34
--- NOTE | 2017-04-03 14:23 | Diagnostic Imaging Report ---
Indications: Headache and dizziness Technique: Spiral acquisitions obtained through the brain. Angled axial and coronal 5 x 5 mm slices were reconstructed. Total dose length product 1372 mGycm. CTDI vol(s) 70 mGy. Dose reduction achieved using automated exposure control Comparison: None Findings: There is mild age-related enlargement of the ventricles and extra axial CSF spaces. There is mild periventricular deep white matter chronic ischemic change. No acute hemorrhage or edema. No mass effect or midline shift. Normal robertson-white differentiation. There is evidence of prior bilateral cataract surgery. There is evidence of prior left-sided scleral banding and vitreous hemorrhage. Intact calvarium. Impression: Chronic and age-related changes Negative for acute intracranial bleed or mass effect Evidence of prior left-sided scleral banding and vitreous hemorrhage The CT scanner at [facility] is accredited by the [employer] and the scans are performed using protocols designed to limit radiation exposure to as low as reasonably achievable to attain images of sufficient resolution adequate for diagnostic evaluation.
[2017-04-03 15:58] LABS: ANION GAP 17 (5-15); CALCIUM 9.4 mg/dL (8.6-10.2); CARBON DIOXIDE 21 mEQ/L (20-30); CHLORIDE 95 mEQ/L (98-107); CREATININE 0.8 mg/dL (0.7-1.2); HEMOLYSIS 52; PHOSPHORUS 2.9 mg/dL (2.5-4.8); POTASSIUM 4.3 mEQ/L (3.4-4.9); SODIUM 133 mEQ/L (135-145)
[2017-04-03] MEDS: Lisinopril 20mg tab ORAL SCH (16:00)
[2017-04-03] MEDS: HydrALAZINE 50mg tab ORAL SCH ×2 (16:02→23:00)
[2017-04-03] MEDS: traMADol 50mg tab ORAL PRN ×2 (16:02→20:11)
[2017-04-03] MEDS: NovoLOG Insulin Flexpen SUBQ SCH (16:29)
[2017-04-03] MEDS: Cosopt Opth Soln 10 mL Btl LEFT EYE SCH (18:26)
[2017-04-03] MEDS: Vigamox Opth Soln LEFT EYE SCH ×5 (18:26→21:24)
[2017-04-03] MEDS: Pred Forte 1% Opth Susp 1ml LEFT EYE SCH ×3 (18:26→22:00)
[2017-04-03] MEDS: Acyclovir 200mg Cap ORAL SCH (20:02)
[2017-04-03] MEDS: Levemir Flexpen SUBQ SCH (20:19)
[2017-04-03] MEDS ORDERED: Kenalog-40 1ml Vial ONE (20:45)
[2017-04-03] MEDS ORDERED: Dexamethasone 4mg/ml vial ONE (20:45)
[2017-04-03] MEDS ORDERED: Bupivacaine 0.75% 30ml vial INJ ONE (20:46)
[2017-04-03] MEDS ORDERED: Lidocaine 2% MPF 5ml Vial INJ ONE (20:47)
[2017-04-03] MEDS ORDERED: Povidone-Iodine 5% opth solution ONE (20:47)
--- NOTE | 2017-04-03 20:50 | Pre-Procedure Note/Attestation ---
Pre-Procedure Note/Attestation Complete Prior to Procedure Planned Procedure: left Procedure Narrative: Vitreous tap with drainage of silicone oil L eye Indications for Procedure Pre-Operative Diagnosis: Intermittent pupillary block with elevated pressure L eye Attestation I attest that I discussed the nature of the procedure; its benefits; risks and complications; and alternatives (and the risks and benefits of such alternatives ), prior to the procedure, with the patient (or the patient's legal electroplating sales representative). I attest that, if there was a reasonable possibility of needing a blood transfusion, the patient (or the patient's legal electroplating sales representative) was given the [facility] standardized written summary, pursuant to the Eddie Valente Blood Safety Act ([place] Health and Safety Code # 1645, as amended). I attest that I re-evaluated the patient just prior to the surgery and that there has been no change in the patient's H&P, except as documented below: SEGUNDO IGLESIAS Apr 03, 2017 20:50
[2017-04-03] MEDS ORDERED: acetaZOLAMIDE 500mg Inj IVPB SCH (21:00)
[2017-04-03] MEDS ORDERED: Enoxaparin 40mg Inj SUBQ SCH (21:00)
[2017-04-03] MEDS: Enoxaparin 40mg Inj SUBQ SCH (21:00)
[2017-04-03] MEDS ORDERED: acetaZOLAMIDE 500mg Inj IVP SCH (21:00)
--- NOTE | 2017-04-03 21:23 | Anethesia Preoperative Eval ---
Anesthesia Pre-op PMH/ROS General Date of Evaluation: Apr 03, 2017 Time of Evaluation: 21:26 Anesthesiologist: Kiara ASA Score: ASA 3 - Emergency Mallampati Score Class I : Soft palate, uvula, fauces, pillars visible Class II: Soft palate, uvula, fauces visible Class III: Soft palate, base of uvula visible Class IV: Only hard plate visible Mallampati Classification: Class II Surgeon: Amaya Diagnosis: Pain OS Surgical Procedure: Reieve Pressure OS Anesthesia History: none Family History: no anesthesia problems Allergies: Coded Allergies: No Known Allergies (Unverified , 02/28/17) Medications: see eMAR Past Medical History Cardiovascular: Reports: HTN Endocrine: Reports: DM HEENT: Reports: cataract (L), cataract (R) Hematology/Immune: Reports: anemia PSxH Narrative: Vitrectomy Anesthesia Pre-op Phys. Exam Physician Exam Last Vital Signs Date Time Temp Pulse Resp B/P (MAP) Pulse Ox O2 Delivery O2 Flow Rate FiO2 04/03/17 20:00 97.7 65 20 161/65 98 Room Air Constitutional: NAD Neurologic: CN 2-12 intact Cardiovascular: RRR Respiratory: CTA Gastrointestinal: S/NT/ND Airway Exam Mallampati Score: Class II MO: limited ROM: limited Teeth: missing, intact Anesthesia Pre-op A/P Labs Hematology Test 04/03/17 12:10 White Blood Count 8.4 K/UL (4.8-10.8) Red Blood Count 4.05 M/UL (4.70-6.10) L Hemoglobin 12.0 G/DL (14.2-18.0) L Hematocrit 36.9 % (42.0-52.0) L Mean Corpuscular Volume 91 FL (80-99) Mean Corpuscular Hemoglobin 29.7 PG (27.0-31.0) Mean Corpuscular Hemoglobin Concent 32.6 G/DL (32.0-36.0) Red Cell Distribution Width 14.3 % (11.6-14.8) Platelet Count 140 K/UL (150-450) L Mean Platelet Volume 8.1 FL (6.5-10.1) Neutrophils (%) (Auto) % (45.0-75.0) Lymphocytes (%) (Auto) % (20.0-45.0) Monocytes (%) (Auto) % (1.0-10.0) Eosinophils (%) (Auto) % (0.0-3.0) Basophils (%) (Auto) % (0.0-2.0) Differential Total Cells Counted 100 Neutrophils % (Manual) 81 % (45-75) H Lymphocytes % (Manual) 13 % (20-45) L Monocytes % (Manual) 6 % (1-10) Eosinophils % (Manual) 0 % (0-3) Basophils % (Manual) 0 % (0-2) Band Neutrophils 0 % (0-8) Platelet Estimate Decreased L Platelet Morphology Normal Red Blood Cell Morphology Normal Chemistry Test 04/03/17 12:31 Sodium Level 133 mEQ/L (135-145) L Potassium Level 4.3 mEQ/L (3.4-4.9) Chloride Level 95 mEQ/L (98-107) L Carbon Dioxide Level 21 mEQ/L (20-30) Anion Gap 17 (5-15) H Blood Urea Nitrogen 25 mg/dL (7-23) H Creatinine 0.8 mg/dL (0.7-1.2) Estimat Glomerular Filtration Rate mL/min (>60) Glucose Level 248 mg/dL (74-106) H Calcium Level 9.4 mg/dL (8.6-10.2) Phosphorus Level 2.9 mg/dL (2.5-4.8) Total Bilirubin 0.6 mg/dL (0.0-1.2) Aspartate Amino Transf (AST/SGOT) 22 U/L (5-40) Alanine Aminotransferase (ALT/SGPT) 15 U/L (3-41) Alkaline Phosphatase 46 U/L (40-129) Troponin I < 0.30 ng/mL (<=0.30) Total Protein 6.3 g/dL (6.6-8.7) L Albumin 3.7 g/dL (3.5-5.2) Globulin 2.8 g/dL Albumin/Globulin Ratio 1.2 (1.0-2.7) Lipase 19 U/L (< 60) Risk Assessment & Plan Assessment: ASA 3E Plan: Relieve Pressure OS Status Change Before Surgery: Davy Cordova MD Apr 03, 2017 21:23
--- NOTE | 2017-04-03 21:28 | Immediate Post-Op Evaluation ---
Immediate Post-Op Evalulation Immediate Post-Op Evalulation Procedure: RelIeve Pressure OS Date of Evaluation: Apr 03, 2017 Time of Evaluation: 22:29 IV Fluids: 200 LR Blood Products: 0 Estimated Blood Loss: 1 Urinary Output: 0 Blood Pressure Systolic: 144 Blood Pressure Diastolic: 60 Pulse Rate: 66 Respiratory Rate: 16 O2 Sat by Pulse Oximetry: 100 Temperature (Fahrenheit): 97.6 Pain Score (1-10): 1 Nausea: No Vomiting: No Complications 0 Patient Status: awake, reacts, patent, none Hydration Status: adequate Davy Craig MD Apr 03, 2017 21:28
[2017-04-03] MEDS ORDERED: NS Irrig 1000ml ONE (21:30)
[2017-04-03] MEDS ORDERED: oxyCODONE HCL/Acetaminophen 5/325mg ORAL PRN (21:30)
[2017-04-03] MEDS ORDERED: Sterile Water Irrig 1000ml IRRIG ONE (21:30)
[2017-04-03] MEDS ORDERED: Meperidine 25mg/0.5ml Inj (FOR RIGORS ONLY) IV PRN (21:30)
[2017-04-03] MEDS ORDERED: Norco 5mg/325mg tab ORAL PRN (21:30)
[2017-04-03] MEDS ORDERED: DiphenhydrAMINE 50mg/ml Inj IVP PRN (21:30)
[2017-04-03] MEDS ORDERED: LORazepam Inj 2mg/ml 1ml IV PRN (21:30)
[2017-04-03] MEDS ORDERED: Metoclopramide 10mg/2ml Inj IVP PRN (21:30)
[2017-04-03] MEDS ORDERED: Hydromorphone 0.5mg/0.5ml inj IVP PRN (21:30)
[2017-04-03] MEDS ORDERED: Atropine Inj 1mg/10ml Syr IV PRN (21:30)
[2017-04-03] MEDS ORDERED: Midazolam 2mg/2ml Inj IVP PRN (21:30)
[2017-04-03] MEDS ORDERED: Norco 7.5mg/325mg tab ORAL PRN (21:30)
[2017-04-03] MEDS ORDERED: fentaNYL 100 mcg/2 mL IV PRN (21:30)
[2017-04-03] MEDS ORDERED: LR 1000ml ONE (21:30)
[2017-04-03] MEDS ORDERED: Midazolam 2mg/2ml Inj ONE (21:30)
[2017-04-03] MEDS ORDERED: LR 1000ml 1,000 ML IVLG SCH (22:00)
--- NOTE | 2017-04-03 22:20 | Brief Operative Note ---
Immediate Post Operative Note Operative Note Chief Complaint: Pain and nausea L eye Pre-op Diagnosis: Intermittent pupillary block with elevated pressure L eye Procedure: Vitreous tap with drainage of silicone oil and suprachoroidal fluid. Deepening of anterior chamber L eye Post-op Diagnosis: Shallow anterior chamber with intermittent pupillary block. Mild suprachoroidal hemorrhage L eye Post-op Diagnosis: same as pre-op plus - See above Surgeon: aviva Anesthesiologist: Kiara Anesthesia: local, MAC Specimen: none Complications: none Condition: stable Fluids: None Estimated Blood Loss: none Drains: none Implant(s) used?: No SEGUNDO IGLESIAS Apr 03, 2017 22:20
[2017-04-04] VITALS (7 sets, daily range): BP systolic 127–176; BP diastolic 50–73
[2017-04-04] MEDS: Pred Forte 1% Opth Susp 1ml LEFT EYE SCH ×12 (00:24→21:58)
[2017-04-04] MEDS: traMADol 50mg tab ORAL PRN ×3 (01:24→11:13)
--- NOTE | 2017-04-04 01:45 | Pre-op HX & Phy Repo 2 SIG ---
DATE OF ADMISSION: 04/03/2017 DATE OF SURGERY: 04/03/2017. PREOPERATIVE DIAGNOSIS: Intermittent pupillary block with possible pressure elevation, left eye. PROCEDURE TO BE PERFORMED: Vitreous tap with limited drainage of silicone oil, left eye. BRIEF NOTE: This is an emergency readmission for the patient, who is an 86-year-old gentleman, who underwent a successful vitrectomy on the left eye on Friday. The surgery was completed successfully with placement of adequate amount of silicone oil and noting that the eye was soft at the end of surgery. The retina was completely reattached. On a postoperative visit this morning, we were informed the patient later in the evening had developed nausea and vomiting and complained of a headache. When seen at my office, he appeared dehydrated with persistent nausea and vomiting. Examination of the eye however revealed a pressure of 23 with the retina attached. This was in the upright position, however. He had a limited anterior chamber paracentesis with further softening of the eye and was admitted to [place] for rehydration and analgesia. Despite this, he is continued with persistent pain and nausea and is admitted for a brief exploration and drainage of silicone oil and possible reformation of the anterior chamber. Penlight examination at the bedside revealed vision of light perception to hand motions. The chamber appeared deep centrally, but slightly shallow peripherally as there was intermittent pupillary blockage. The pressure to palpation appeared to be firmer than earlier today, will be remeasured in the operating room. ASSESSMENT: Probable intermittent pupillary blockage and elevated pressure associated with possible choroidal effusion or elevation subsequent to vitrectomy and laser yesterday. The patient has been seen preoperatively by Dr. Jaime. PLAN: The plan is to briefly take the patient to the operating room, where retrobulbar block will be performed and a brief and limited drainage of roughly 0.5 mL of silicone oil through the pars plana. The wound will be sutured shut. The risks and benefits of surgery were noted and were discussed with the patient and his daughter including the potential for infection, reattachment of the retina, and the possibility that pressure may remain elevated and require additional medications to control. The patient and his daughter understands. He consents to the surgery, which will be performed on an emergent basis this evening. Simone Conde M.D. DR: Josette JOB#: [id number] CC:
[2017-04-04 03:10] LABS: APPEARANCE,URINE CLEAR; KETONES,URINE NEGATIVE (NEGATIVE); LEUKOCYTE ESTERASE ,URINE NEGATIVE (NEGATIVE); NITRITE,URINE NEGATIVE (NEGATIVE); PH,URINE 6.5 (4.5-8.0); UROBILINOGEN,URINE NORMAL MG/DL (0.0-1.0)
[2017-04-04 03:12] LABS: PROTEIN,URINE NEGATIVE (NEGATIVE)
[2017-04-04 04:54] LABS: RBC,URINE 0-2 /HPF (0 - 0); SQUAMOUS EPITHELIAL CELL,UR FEW /LPF (NONE/OCC); WBC,URINE 0 /HPF (0 - 0)
[2017-04-04] MEDS: Acyclovir 200mg Cap ORAL SCH (05:44)
[2017-04-04] MEDS: HydrALAZINE 50mg tab ORAL SCH ×3 (05:44→21:17)
[2017-04-04] MEDS: NovoLOG Insulin Flexpen SUBQ SCH ×3 (05:45→16:30)
[2017-04-04 07:36] LABS: MEAN CORPUSCULAR HGB CONC 33.5 G/DL (32.0-36.0); MEAN CORPUSCULAR VOLUME 92 FL (80-99); MEAN PLATELET VOLUME 9.3 FL (6.5-10.1); PLATELET COUNT 140 K/UL (150-450); RED BLOOD COUNT 4.15 M/UL (4.70-6.10); RED CELL DISTRIBUTION WIDTH 14.4 % (11.6-14.8); WHITE BLOOD COUNT 9.7 K/UL (4.8-10.8)
[2017-04-04 07:54] LABS: ANION GAP 14 (5-15); CALCIUM 9.4 mg/dL (8.6-10.2); CARBON DIOXIDE 24 mEQ/L (20-30); CHLORIDE 99 mEQ/L (98-107); CREATININE 0.7 mg/dL (0.7-1.2); HEMOLYSIS 11; POTASSIUM 4.3 mEQ/L (3.4-4.9); SODIUM 137 mEQ/L (135-145)
[2017-04-04 08:38] LABS: ANISOCYTOSIS 1+; BAND NEUTROPHILS % (MANUAL) 0 % (0-8); BASOPHILS % (MANUAL) 0 % (0-2); EOSINOPHILS % (MANUAL) 0 % (0-3); LYMPHOCYTES % (MANUAL) 4 % (20-45); NEUTROPHILS % (MANUAL) 91 % (45-75); PLATELET ESTIMATE DECREASED; PLATELET MORPHOLOGY NORMAL; TOTAL CELLS COUNTED 100
[2017-04-04] MEDS: Vigamox Opth Soln LEFT EYE SCH ×4 (09:24→21:18)
[2017-04-04] MEDS: Furosemide 40mg tab ORAL SCH (09:25)
[2017-04-04] MEDS: Lisinopril 20mg tab ORAL SCH (09:26)
[2017-04-04] MEDS: Cosopt Opth Soln 10 mL Btl LEFT EYE SCH ×3 (09:26→18:14)
[2017-04-04 09:40] LABS: BILIRUBIN,DIRECT 0.1 mg/dL (0.1-0.3); TOTAL PROTEIN 6.6 g/dL (6.6-8.7)
--- NOTE | 2017-04-04 10:45 | History and Physical Report ---
DATE OF ADMISSION: 04/03/2017 Reason For Evaluation: I was asked by Dr. Simone Conde to see this 86-year-old male, who was sent to emergency room with symptoms of severe nausea and vomiting and severe headache, more prominent in the left occipital area. The patient had left eye surgery yesterday, vitrectomy and silicone oil injection for retinal detachment of the left eye. The patient had also surgery about four weeks ago in the [facility], which postop was 01:54 the patient had three months ago some episodes of nausea and vomiting and was prescribed Zofran by primary care physician. The patient was evaluated in the emergency room now. Two daughters at bedside 02:26 translation. Past Medical History: Remarkable for history of hypertension. No stroke. Denies history of seizures. The patient has chronic headaches and the patient is diabetic, insulin dependent, uses 14 units of Lantus at bedtime and on Novolin sliding scale three times a day. The patient has a history of bronchial asthma as a young man and stable during the last 20 years. Gastrointestinal, the patient has heartburn and chronic constipation, uses laxative, senna. Genitourinary tract revealed benign prostatic hypertrophy and has prostate TURP procedure. According to the daughter, no renal failure. The patient had no heart attack. No palpitation. He has a tendency to bradycardia. No history of anemia or thyroid problem. 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 PAST SURGICAL HISTORY: Eye surgery yesterday and four weeks ago, also abdominal hernia repair approximately 20 years ago. Present Medications: Include prednisone 10 mg daily, Lantus 14 units, NovoLog regular three times a day, prednisone 10 mg daily with plan to reduce dosage, Zofran 4 mg, lisinopril 40 mg daily, hydralazine once a day, Lasix 40 mg daily, acyclovir, NovoLog, and senna. The patient takes Tylenol for pain and 06:09 [place], became very lethargic. HABITS: Unknown. FAMILY HISTORY: Unknown. PHYSICAL EXAMINATION: GENERAL: The patient is awake and oriented. Translation obtained through the daughters. SKIN: Dry and warm. No lesions. HEENT: Head, normocephalic. Eyes, left eye dressing examined today by Dr. Conde. Pressure is normal. NECK: No jugular distention. Carotids are +2. No bruits. Trachea midline. CHEST: No deformity or asymmetry. LUNGS: Clear to auscultation to percussion. HEART: Sinus rhythm. A 1/6 systolic murmur prominent on the apex. ABDOMEN: Soft. Discomfort on the right side. Liver and spleen not enlarged. No rebound. Bowel sounds +2. EXTREMITIES: No deformity or edema. No calf tenderness. NERVOUS SYSTEM: No tremor. No nystagmus. No asymmetry. LABORATORY DATA: Lab work pending. IMPRESSION: 1. Nausea and vomiting. 2. 08:25. 3. Insulin-dependent diabetes mellitus. 4. Status post left eye surgery on 04/02/2017, retinal detachment, 5. Hypertension. 6. History of pemphigus, on prednisone and herpes simplex, on acyclovir. PLAN: Admit for observation, IV fluids, normal insulin rate 75 per minute. Blood pressure controlled with hydralazine. A 2 gram sodium diet. Control diabetes with sliding scale insulin. Prognosis guarded. Sumanth Jaime M.D. DR: Farnaz JOB#: [id number] CC:
[2017-04-04] MEDS: Esomeprazole sodium 40mg vial IVP SCH (11:05)
--- NOTE | 2017-04-04 11:50 | General Progress Note ---
Subjective HEENT: Reports: other - rt hrmicephalopathia nousea,no appetite. Cardiovascular: Reports: no symptoms Respiratory: Reports: no symptoms Gastrointestinal/Abdominal: Reports: constipated, nausea, poor appetite, vomiting Genitourinary: Reports: no symptoms Neurologic/Psychiatric: Reports: headache Endocrine: Reports: no symptoms Hematologic/Lymphatic: Reports: no symptoms Allergies: Coded Allergies: No Known Allergies (Unverified , 02/28/17) Objective Last 24 Hour Vital Signs Date Time Temp Pulse Resp B/P (MAP) Pulse Ox O2 Delivery O2 Flow Rate FiO2 04/04/17 09:26 172/62 04/04/17 08:32 98.2 71 20 176/69 99 Room Air 04/04/17 05:44 160/70 04/04/17 04:00 98.0 68 20 160/70 97 Room Air 04/04/17 00:00 97.7 69 20 127/50 97 Room Air 04/03/17 23:20 97.7 69 20 127/50 97 Room Air 04/03/17 23:00 120/52 04/03/17 22:41 98.0 62 20 114/42 99 Room Air 04/03/17 22:35 62 20 114/42 99 Room Air 04/03/17 22:28 63 20 118/41 99 Room Air 04/03/17 22:23 67 20 138/71 99 Room Air 04/03/17 22:18 97.6 66 20 144/67 99 Room Air 04/03/17 22:18 66 16 100 04/03/17 20:00 97.7 65 20 161/65 98 Room Air 04/03/17 19:49 97.7 65 20 161/65 98 Room Air 04/03/17 18:07 98.0 80 20 152/60 98 Room Air 04/03/17 16:02 181/57 04/03/17 16:00 181/57 04/03/17 14:18 67 15 181/57 100 Room Air 04/03/17 12:41 66 20 184/72 100 Room Air Intake and Output 04/04/17 04/05/17 18:59 06:59 Intake Total 75 ml Balance 75 ml IV Total 75 ml Laboratory Tests 04/03/17 12:10: White Blood Count 8.4, Red Blood Count 4.05L, Hemoglobin 12.0L, Hematocrit 36.9L , Mean Corpuscular Volume 91, Mean Corpuscular Hemoglobin 29.7, Mean Corpuscular Hemoglobin Concent 32.6, Red Cell Distribution Width 14.3, Platelet Count 140L, Mean Platelet Volume 8.1, Neutrophils (%) (Auto) , Lymphocytes (%) ( Auto) , Monocytes (%) (Auto) , Eosinophils (%) (Auto) , Basophils (%) (Auto) , Differential Total Cells Counted 100, Neutrophils % (Manual) 81H, Lymphocytes % (Manual) 13L, Monocytes % (Manual) 6, Eosinophils % (Manual) 0, Basophils % ( Manual) 0, Band Neutrophils 0, Platelet Estimate DecreasedL, Platelet Morphology Normal, Red Blood Cell Morphology Normal 04/03/17 12:31: Sodium Level 133L, Potassium Level 4.3, Chloride Level 95L, Carbon Dioxide Level 21, Anion Gap 17H, Blood Urea Nitrogen 25H, Creatinine 0.8, Estimat Glomerular Filtration Rate , Glucose Level 248H, Calcium Level 9.4, Phosphorus Level 2.9, Total Bilirubin 0.6, Aspartate Amino Transf (AST/SGOT) 22, Alanine Aminotransferase (ALT/SGPT) 15, Alkaline Phosphatase 46, Troponin I < 0.30, Total Protein 6.3L, Albumin 3.7, Globulin 2.8, Albumin/Globulin Ratio 1.2, Lipase 19 04/04/17 00:50: Urine Color Yellow, Urine Appearance Clear, Urine pH 6.5, Urine Specific [place] 1.010, Urine Protein Negative, Urine Glucose (UA) 1+H, Urine Ketones Negative, Urine Occult Blood Negative, Urine Nitrite Negative, Urine Bilirubin Negative, Urine Urobilinogen Normal, Urine Leukocyte Esterase Negative, Urine RBC 0-2H, Urine WBC 0, Urine Squamous Epithelial Cells Few, Urine Bacteria None 04/04/17 05:30: White Blood Count 9.7, Red Blood Count 4.15L, Hemoglobin 12.8L, Hematocrit 38.3L , Mean Corpuscular Volume 92, Mean Corpuscular Hemoglobin 31.0, Mean Corpuscular Hemoglobin Concent 33.5, Red Cell Distribution Width 14.4, Platelet Count 140L, Mean Platelet Volume 9.3, Neutrophils (%) (Auto) , Lymphocytes (%) ( Auto) , Monocytes (%) (Auto) , Eosinophils (%) (Auto) , Basophils (%) (Auto) , Differential Total Cells Counted 100, Neutrophils % (Manual) 91H, Lymphocytes % (Manual) 4L, Monocytes % (Manual) 5, Eosinophils % (Manual) 0, Basophils % ( Manual) 0, Band Neutrophils 0, Platelet Estimate DecreasedL, Platelet Morphology Normal, Sodium Level 137, Potassium Level 4.3, Chloride Level 99, Carbon Dioxide Level 24, Anion Gap 14, Blood Urea Nitrogen 15, Creatinine 0.7, Estimat Glomerular Filtration Rate , Glucose Level 173H, Calcium Level 9.4, Total Bilirubin 0.9, Aspartate Amino Transf (AST/SGOT) 24, Alanine Aminotransferase (ALT/SGPT) 14, Alkaline Phosphatase 53, Total Protein 6.6, Albumin 3.7, Anisocytosis 1+, Direct Bilirubin 0.1 Height (Feet): 5 Height (Inches): 5.00 Weight (Pounds): 180 AYDEN ANGELES Apr 04, 2017 11:50
--- NOTE | 2017-04-04 12:01 | General Progress Note ---
Subjective Allergies: Coded Allergies: No Known Allergies (Unverified , 02/28/17) Objective Last 24 Hour Vital Signs Date Time Temp Pulse Resp B/P (MAP) Pulse Ox O2 Delivery O2 Flow Rate FiO2 04/04/17 09:26 172/62 04/04/17 08:32 98.2 71 20 176/69 99 Room Air 04/04/17 05:44 160/70 04/04/17 04:00 98.0 68 20 160/70 97 Room Air 04/04/17 00:00 97.7 69 20 127/50 97 Room Air 04/03/17 23:20 97.7 69 20 127/50 97 Room Air 04/03/17 23:00 120/52 04/03/17 22:41 98.0 62 20 114/42 99 Room Air 04/03/17 22:35 62 20 114/42 99 Room Air 04/03/17 22:28 63 20 118/41 99 Room Air 04/03/17 22:23 67 20 138/71 99 Room Air 04/03/17 22:18 97.6 66 20 144/67 99 Room Air 04/03/17 22:18 66 16 100 04/03/17 20:00 97.7 65 20 161/65 98 Room Air 04/03/17 19:49 97.7 65 20 161/65 98 Room Air 04/03/17 18:07 98.0 80 20 152/60 98 Room Air 04/03/17 16:02 181/57 04/03/17 16:00 181/57 04/03/17 14:18 67 15 181/57 100 Room Air 04/03/17 12:41 66 20 184/72 100 Room Air Intake and Output 04/04/17 04/05/17 18:59 06:59 Intake Total 75 ml Balance 75 ml IV Total 75 ml Laboratory Tests 04/03/17 12:10: White Blood Count 8.4, Red Blood Count 4.05L, Hemoglobin 12.0L, Hematocrit 36.9L , Mean Corpuscular Volume 91, Mean Corpuscular Hemoglobin 29.7, Mean Corpuscular Hemoglobin Concent 32.6, Red Cell Distribution Width 14.3, Platelet Count 140L, Mean Platelet Volume 8.1, Neutrophils (%) (Auto) , Lymphocytes (%) ( Auto) , Monocytes (%) (Auto) , Eosinophils (%) (Auto) , Basophils (%) (Auto) , Differential Total Cells Counted 100, Neutrophils % (Manual) 81H, Lymphocytes % (Manual) 13L, Monocytes % (Manual) 6, Eosinophils % (Manual) 0, Basophils % ( Manual) 0, Band Neutrophils 0, Platelet Estimate DecreasedL, Platelet Morphology Normal, Red Blood Cell Morphology Normal 04/03/17 12:31: Sodium Level 133L, Potassium Level 4.3, Chloride Level 95L, Carbon Dioxide Level 21, Anion Gap 17H, Blood Urea Nitrogen 25H, Creatinine 0.8, Estimat Glomerular Filtration Rate , Glucose Level 248H, Calcium Level 9.4, Phosphorus Level 2.9, Total Bilirubin 0.6, Aspartate Amino Transf (AST/SGOT) 22, Alanine Aminotransferase (ALT/SGPT) 15, Alkaline Phosphatase 46, Troponin I < 0.30, Total Protein 6.3L, Albumin 3.7, Globulin 2.8, Albumin/Globulin Ratio 1.2, Lipase 19 04/04/17 00:50: Urine Color Yellow, Urine Appearance Clear, Urine pH 6.5, Urine Specific [place] 1.010, Urine Protein Negative, Urine Glucose (UA) 1+H, Urine Ketones Negative, Urine Occult Blood Negative, Urine Nitrite Negative, Urine Bilirubin Negative, Urine Urobilinogen Normal, Urine Leukocyte Esterase Negative, Urine RBC 0-2H, Urine WBC 0, Urine Squamous Epithelial Cells Few, Urine Bacteria None 04/04/17 05:30: White Blood Count 9.7, Red Blood Count 4.15L, Hemoglobin 12.8L, Hematocrit 38.3L , Mean Corpuscular Volume 92, Mean Corpuscular Hemoglobin 31.0, Mean Corpuscular Hemoglobin Concent 33.5, Red Cell Distribution Width 14.4, Platelet Count 140L, Mean Platelet Volume 9.3, Neutrophils (%) (Auto) , Lymphocytes (%) ( Auto) , Monocytes (%) (Auto) , Eosinophils (%) (Auto) , Basophils (%) (Auto) , Differential Total Cells Counted 100, Neutrophils % (Manual) 91H, Lymphocytes % (Manual) 4L, Monocytes % (Manual) 5, Eosinophils % (Manual) 0, Basophils % ( Manual) 0, Band Neutrophils 0, Platelet Estimate DecreasedL, Platelet Morphology Normal, Sodium Level 137, Potassium Level 4.3, Chloride Level 99, Carbon Dioxide Level 24, Anion Gap 14, Blood Urea Nitrogen 15, Creatinine 0.7, Estimat Glomerular Filtration Rate , Glucose Level 173H, Calcium Level 9.4, Total Bilirubin 0.9, Aspartate Amino Transf (AST/SGOT) 24, Alanine Aminotransferase (ALT/SGPT) 14, Alkaline Phosphatase 53, Total Protein 6.6, Albumin 3.7, Anisocytosis 1+, Direct Bilirubin 0.1 Height (Feet): 5 Height (Inches): 5.00 Weight (Pounds): 180 General Appearance: alert, mild distress EENT: normal ENT inspection Neck: supple, normal inspection Cardiovascular: normal rate, regular rhythm Respiratory/Chest: lungs clear Abdomen: normal bowel sounds, non tender, soft, no mass, other - abdom US neg. GI consult reqestet.LFT wnl.Nexium 40 mg iV q 24 Add Reglan 10 mg q Genitourinary/Rectal: normal genital exam Extremities: normal range of motion, non-tender Edema: no edema noted Arm (L), no edema noted Arm (R), no edema noted Leg (L), no edema noted Leg (R), no edema noted Pedal (L), no edema noted Pedal (R), no edema noted Generalized Neurologic: fiber picker II-XII grossly normal, alert Skin: normal pigmentation, warm/dry Lymphatic: normal anterior cervical (L), normal anterior cervical (R), normal posterior cervical (L), normal posterior cervical (R), normal submandibular (L) , normal submandibular (R), normal supraclavicular (L), normal supraclavicular ( R), normal axillary (L), normal axillary (R), normal inguinal (L), normal inguinal (R), normal other AYDEN ANGELES Apr 04, 2017 12:01
--- NOTE | 2017-04-04 12:11 | GI Initial Consult Note ---
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 History is provided mostly by patient's daughters. Daughter states that patient has had decreased by mouth intake for the last 3 days. Mild nausea and about one episode of vomiting per day nonbilious nonbloody. No diarrhea. No fever or chills. Yesterday patient had a left eye surgery for retinal detachment. This morning patient woke up with a mild headache, they went to the mercury washer who examined the patient and took his eye pressures, was found to be normal, and was sent to the emergency room. Patient complaining of mild throbbing headache , gradual in nature, no exacerbating or relieving factors. Daughter states that patient has not been confused, has still been conversing appropriately, there was no trauma. Currently denying any abdominal pain GI Consult. HPI as noted above. GI consulted for post op N/V. Pt seen on floor, awake A&Ox4 NAD with no active s/sx of N/V/D at this time. Per RN report , the patient had 2 episodes of emesis last night with no blood or coffee grounds noted. The patient still feels nauseated with daughter at the bedside. Poor PO intake x 4 days. Patient presents today s/p eye surgery, see note above, mild anemia and electrolyte imbalance. Unknown history of endoscopic procedures. Home Meds Reported Medications Cholecalciferol (Vitamin D3)* (VITAMIN D*) 1,000 Unit Tablet, 1000 UNITS ORAL DAILY, TAB 04/03/17 Docusate Sodium* (DOCUSATE SODIUM*) 100 Mg Capsule, 100 MG ORAL TWICE A DAY, CAP 04/03/17 Ferrous Sulfate* (FERROUS SULFATE*) 325 Mg Tablet, 325 MG ORAL DAILY, #30 TAB 0 Refills 04/03/17 Prednisone (Prednisone) 20 Mg Tablet, 10 MG PO DAILY, TAB 03/03/17 Insulin Glargine (LANTUS) 100 Unit/1 Ml Insuln.pen, 14 UNITS SUBQ ACBREAKFAST, # 1 EA 0 Refills 03/03/17 Insulin Aspart* (NOVOLOG*) 100 Unit/1 Ml Insuln.pen, 0 SUBQ, #1 EA 0 Refills 03/03/17 Gabapentin* (GABAPENTIN*) 100 Mg Capsule, 100 MG ORAL BID, CAP 03/03/17 Furosemide* (LASIX*) 40 Mg Tablet, 40 MG ORAL DAILY, TAB 03/03/17 Lisinopril* (LISINOPRIL*) 40 Mg Tablet, 40 MG ORAL DAILY, TAB 03/03/17 Hydralazine HCl (Hydralazine HCl) 10 Mg Tablet, 10 MG ORAL DAILY, TAB 03/03/17 Discontinued Reported Medications Sennosides (SENNA) 8.6 Mg Tablet, 8.6 MG PO DAILY, TAB 03/03/17 Med list reviewed/reconciled: Yes Allergies: Coded Allergies: No Known Allergies (Unverified , 02/28/17) Patient History History Provided By: Family Member, Medical Record PMH Narrative Past Medical History: No History, Except For Hx Cardiac Problems: Yes Hx Hypertension: Yes Hx Diabetes: Yes Hx Cancer: No Social History: Denies: smoking, alcohol use, drug use, other Review of Systems All Other Systems: negative except mentioned in HPI Physical Exam Vital Signs Date Time Temp Pulse Resp B/P (MAP) Pulse Ox O2 Delivery O2 Flow Rate FiO2 04/03/17 11:41 68 18 206/72 94 Room Air 04/03/17 18:07 98.0 Sp02 EP Interpretation: reviewed Labs Laboratory Tests Test 04/03/17 12:10 04/03/17 12:31 04/04/17 00:50 04/04/17 05:30 White Blood Count 8.4 K/UL (4.8-10.8) 9.7 K/UL (4.8-10.8) Red Blood Count 4.05 M/UL (4.70-6.10) L 4.15 M/UL (4.70-6.10) L Hemoglobin 12.0 G/DL (14.2-18.0) L 12.8 G/DL (14.2-18.0) L Hematocrit 36.9 % (42.0-52.0) L 38.3 % (42.0-52.0) L Mean Corpuscular Volume 91 FL (80-99) 92 FL (80-99) Mean Corpuscular Hemoglobin 29.7 PG (27.0-31.0) 31.0 PG (27.0-31.0) Mean Corpuscular Hemoglobin Concent 32.6 G/DL (32.0-36.0) 33.5 G/DL (32.0-36.0) Red Cell Distribution Width 14.3 % (11.6-14.8) 14.4 % (11.6-14.8) Platelet Count 140 K/UL (150-450) L 140 K/UL (150-450) L Mean Platelet Volume 8.1 FL (6.5-10.1) 9.3 FL (6.5-10.1) Neutrophils (%) (Auto) % (45.0-75.0) % (45.0-75.0) Lymphocytes (%) (Auto) % (20.0-45.0) % (20.0-45.0) Monocytes (%) (Auto) % (1.0-10.0) % (1.0-10.0) Eosinophils (%) (Auto) % (0.0-3.0) % (0.0-3.0) Basophils (%) (Auto) % (0.0-2.0) % (0.0-2.0) Differential Total Cells Counted 100 100 Neutrophils % (Manual) 81 % (45-75) H 91 % (45-75) H Lymphocytes % (Manual) 13 % (20-45) L 4 % (20-45) L Monocytes % (Manual) 6 % (1-10) 5 % (1-10) Eosinophils % (Manual) 0 % (0-3) 0 % (0-3) Basophils % (Manual) 0 % (0-2) 0 % (0-2) Band Neutrophils 0 % (0-8) 0 % (0-8) Platelet Estimate Decreased L Decreased L Platelet Morphology Normal Normal Red Blood Cell Morphology Normal Sodium Level 133 mEQ/L (135-145) L 137 mEQ/L (135-145) Potassium Level 4.3 mEQ/L (3.4-4.9) 4.3 mEQ/L (3.4-4.9) Chloride Level 95 mEQ/L (98-107) L 99 mEQ/L (98-107) Carbon Dioxide Level 21 mEQ/L (20-30) 24 mEQ/L (20-30) Anion Gap 17 (5-15) H 14 (5-15) Blood Urea Nitrogen 25 mg/dL (7-23) H 15 mg/dL (7-23) Creatinine 0.8 mg/dL (0.7-1.2) 0.7 mg/dL (0.7-1.2) Estimat Glomerular Filtration Rate mL/min (>60) mL/min (>60) Glucose Level 248 mg/dL (74-106) H 173 mg/dL (74-106) H Calcium Level 9.4 mg/dL (8.6-10.2) 9.4 mg/dL (8.6-10.2) Phosphorus Level 2.9 mg/dL (2.5-4.8) Total Bilirubin 0.6 mg/dL (0.0-1.2) 0.9 mg/dL (0.0-1.2) Aspartate Amino Transf (AST/SGOT) 22 U/L (5-40) 24 U/L (5-40) Alanine Aminotransferase (ALT/SGPT) 15 U/L (3-41) 14 U/L (3-41) Alkaline Phosphatase 46 U/L (40-129) 53 U/L (40-129) Troponin I < 0.30 ng/mL (<=0.30) Total Protein 6.3 g/dL (6.6-8.7) L 6.6 g/dL (6.6-8.7) Albumin 3.7 g/dL (3.5-5.2) 3.7 g/dL (3.5-5.2) Globulin 2.8 g/dL Albumin/Globulin Ratio 1.2 (1.0-2.7) Lipase 19 U/L (< 60) Urine Color Yellow Urine Appearance Clear Urine pH 6.5 (4.5-8.0) Urine Specific [place] 1.010 (1.005-1.035) Urine Protein Negative (NEGATIVE) Urine Glucose (UA) 1+ (NEGATIVE) H Urine Ketones Negative (NEGATIVE) Urine Occult Blood Negative (NEGATIVE) Urine Nitrite Negative (NEGATIVE) Urine Bilirubin Negative (NEGATIVE) Urine Urobilinogen Normal MG/DL (0.0-1.0) Urine Leukocyte Esterase Negative (NEGATIVE) Urine RBC 0-2 /HPF (0 - 0) H Urine WBC 0 /HPF (0 - 0) Urine Squamous Epithelial Cells Few /LPF (NONE/OCC) Urine Bacteria None /HPF (NONE) Anisocytosis 1+ Direct Bilirubin 0.1 mg/dL (0.1-0.3) General Appearance: well appearing, no apparent distress, alert, thin Head: normocephalic EENT: PERRL/EOMI, normal ENT inspection Neck: supple Respiratory: normal breath sounds, no respiratory distress Cardiovascular: normal rate Gastrointestinal: normal inspection, non tender, soft Rectal: deferred Musculoskeletal: back normal Neurologic: alert, oriented x3, responsive Psychiatric: normal inspection, judgement/insight normal, memory normal Skin: no rash Lymphatic: normal inspection, no adenopathy Current Medications Current Medications Medications (Trade) Dose Ordered Sig/Fredo Route PRN Reason Start Time Stop Time Status Last Admin Dose Admin Dextrose (Dextrose 50%) STAT PRN IV Hypoglycemia 04/03/17 16:00 05/03/17 15:59 Dorzolamide/ Timolol (Cosopt) 1 drop THREE TIMES A DAY LEFT EYE 04/03/17 18:00 05/03/17 17:59 04/04/17 09:26 Enoxaparin Sodium (Lovenox) 40 mg QHS SUBQ 04/03/17 21:00 05/03/17 20:59 Erythromycin Lactobionate 50 mg/Sodium Chloride 55 ml @ 110 mls/hr L5IN-PM ERYTHROMYCIN IVPB 04/04/17 14:00 04/11/17 13:59 Esomeprazole Sodium (Nexium I.v.) 40 mg DAILY IVP 04/04/17 10:30 05/04/17 10:29 04/04/17 11:05 Furosemide (Lasix) 40 mg DAILY ORAL 04/04/17 09:00 05/04/17 08:59 04/04/17 09:25 Hydralazine HCl (Apresoline) 50 mg Q8HR ORAL 04/03/17 16:30 05/03/17 16:29 04/04/17 05:44 Hydrocortisone (Hydrocortisone) 1 applic DAILY TOPIC 04/04/17 15:00 05/04/17 14:59 UNV Insulin Aspart (NovoLOG) BEFORE MEALS SUBQ 04/03/17 16:30 05/03/17 16:29 04/03/17 16:29 Insulin Detemir (Levemir) 14 units BEDTIME SUBQ 04/03/17 21:00 05/03/17 20:59 Lisinopril (Prinivil) 40 mg DAILY ORAL 04/03/17 16:30 05/03/17 16:29 04/04/17 09:26 Mometasone Furoate (Elocon) 1 applic DAILY TOPIC 04/05/17 09:00 05/05/17 08:59 UNV Moxifloxacin HCl (Vigamox) 1 drop FOUR TIMES A DAY LEFT EYE 04/03/17 18:20 04/10/17 18:19 04/04/17 09:24 Non-Formulary Medication (Non-Formulary Med) 1 ea DAILY TOPIC 04/05/17 09:00 05/05/17 08:59 UNV Ondansetron HCl (Zofran) 8 mg Q4H PRN IVP Nausea & Vomiting 04/03/17 15:30 05/03/17 15:29 04/04/17 11:05 Prednisolone Acetate (Pred Forte) 1 drop Q2HR LEFT EYE 04/03/17 18:15 05/03/17 18:14 04/04/17 07:58 Prednisone (predniSONE) 10 mg DAILY ORAL 04/03/17 16:30 05/03/17 16:29 04/04/17 11:13 Sennosides (Senokot) 17.2 mg BID ORAL 04/04/17 09:00 05/04/17 08:59 04/04/17 11:14 Sodium Chloride 1,000 ml @ 75 mls/hr [id number] IV 04/03/17 16:15 05/03/17 16:14 04/04/17 05:44 Tramadol HCl (Ultram) 50 mg Q4H PRN ORAL For Pain 04/03/17 15:30 04/10/17 15:29 04/04/17 11:13 Valacyclovir HCl (Valtrex) 500 mg DAILY ORAL 04/05/17 09:00 05/05/17 08:59 UNV Vitamin D (Vitamin D) 1,000 intlu DAILY ORAL 04/05/17 09:00 05/05/17 08:59 UNV GI: Plan Problems: (1) Post-operative nausea and vomiting (2) Severe malnutrition (3) Dehydration Plan symptomatic treatment at this time ordered low dose erythromycin for GI motility zofran 8mg prn >> consider scopolamine patch if nausea persists FLD low sodium + ensure, adv as tolerated >> zofran 30 min prior feeding maintain IVFs + electrolyte correction cont ppi fu labs Discussed with Dr. Garcia. Thank you for referring this patient, we will follow. Safia Renteria N.P. Apr 04, 2017 12:11
--- NOTE | 2017-04-04 13:40 | Diagnostic Imaging Report ---
Indication:Abdominal pain Technique: Grayscale and duplex Doppler imaging of the abdomen performed. Comparison: None Findings: The liver is slightly echogenic consistent with fatty infiltration. The demonstrated part of the pancreas, gallbladder, aorta and IVC, both kidneys, spleen appear unremarkable. There is no biliary ductal dilatation identified. Doppler evaluation of the main portal vein shows patency. There is no ascites. No hydronephrosis seen. CBD is less than 5 mm in diameter. Impression: Mild fatty liver. Negative exam otherwise.
[2017-04-04] MEDS: Erythromycin Inj 50 MG in NS 55 ML IVPB SCH ×3 (14:00→20:24)
[2017-04-04] MEDS: Hydrocortisone 2.5% Oint 30gm TOPIC SCH (14:57)
[2017-04-04] MEDS: Metoclopramide 10mg/2ml Inj IVP SCH ×2 (14:57→21:17)
[2017-04-04] MEDS: Ketorolac 30mg Inj IV PRN (14:58)
[2017-04-04] MEDS: Levemir Flexpen SUBQ SCH (21:00)
[2017-04-04] MEDS: Enoxaparin 40mg Inj SUBQ SCH (21:16)
[2017-04-05] VITALS: BP 134/50
[2017-04-05] MEDS: Pred Forte 1% Opth Susp 1ml LEFT EYE SCH ×12 (00:04→22:03)
--- NOTE | 2017-04-05 00:45 | Operative Note - Dictated ---
DATE OF OPERATION: 04/03/2017 PREOPERATIVE DIAGNOSIS: Intermittent pupillary block with possible pressure elevation, left eye. 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 PROCEDURES PERFORMED: 1. Drainage of choroidal fluid blood. 2. Partial removal of silicone oil. 3. Re-formation of anterior chamber, left eye. SURGEON: Simone Conde M.D. [employer]: None. ANESTHESIOLOGIST: Davy Craig M.D. ANESTHESIA: Local with mild sedation. JUSTIFICATION FOR SURGERY: This patient underwent a vitrectomy on 04/02/2017 with repositioning of a scleral buckle, endo drainage, and extensive endolaser as well as removal and replacement of silicone oil. The eye was left soft and the retina was noted to be completely reattached during this procedure. By the next morning, the patient was complaining of pain about the eye and had significant nausea and vomiting, although the pressure was only mildly elevated. It was elected to perform this procedure due to the possibility of intermittent pupillary block. BRIEF NOTE: The patient was brought to the operating room and placed on the operating room table in the supine position. After a time-out was performed and agreed upon by the staff, an initial monitoring secured by Dr. Craig, a retrobulbar block was given in the standard way. When the blocks had taken effect, he was prepped and draped in the normal manner. A lid speculum was inserted into the left eye. A site at the 11 o'clock position was chosen and conjunctiva was slid slightly posteriorly. An area of 4 mm from the limbus was marked and using a 20-gauge MVR blade, an opening into the pars plana extending into the central vitreous cavity was made. Initially, there was drainage of small amount of fresh blood and serous fluid followed by the forced removal of roughly 0.5 mL of silicone oil. The eye was noted to be relatively soft beginning the procedure with an estimated pressure of about 20. After drainage of fluid, the eye was left soft with a pressure of 0 to 5. Previous paracentesis had been made at the office earlier in the day, was used to place a small amount of balanced salt solution to reform the anterior chamber, this went without difficulty, without migration of silicone oil anteriorly. There were no permanent iris adhesions noted. The pressure again was estimated about 5 mmHg. The sclerotomy, which had been made at 11 o'clock, was then closed with two interrupted sutures of 8-0 Vicryl, effecting a complete closure. The knots were rotated posteriorly and the conjunctiva was pulled back up to cover this side. Subconjunctival Kenalog 40 mg and gentamicin were injected inferiorly and temporally. In addition, a further block of anesthetic solution was given superiorly through the lid to effect of postoperative anesthesia. Topical atropine, prednisolone, and moxifloxacin drops were given followed by instillation of Maxitrol ointment. The eye was patched and shielded. The patient was taken to recovery in excellent condition. There were no complications. Simone Conde M.D. DR: FELISHA JOB#: [id number] CC:
[2017-04-05] MEDS: Erythromycin Inj 50 MG in NS 55 ML IVPB SCH ×5 (02:03→20:23)
--- NOTE | 2017-04-05 03:30 | Progress Note ---
DATE: 04/04/2017 Progress note postoperative day #1. SUBJECTIVE: The patient complained of persistent pain about the left eye and nausea that was somewhat less. Examination revealed a vision of strong light perception in the left eye with the pressure measured at 24. External examination showed mild resolving lid edema. There was full range of ocular motion although some pain was noted. The pupil was 4 mm and slightly reactive. The anterior segment showed 1+ conjunctival injection and mild edema. The cornea was clear. The anterior chamber was deep without oil penetration into the anterior chamber. Fundus examination was mildly hazy, but showed the retina to be attached behind roughly an 80% silicone oil fill. ASSESSMENT: 1. Status post partial silicone oil removal and reformation of anterior chamber, left eye. 2. Persistent nausea and ocular discomfort, left side. PLAN: The plan is to continue with topical medications with the addition of Lumigan once a day. Other medications include prednisolone 4 times a day, moxifloxacin 4 times a day, and Cosopt 3 times a day. Intravenous Diamox was discontinued. Dr. Jaime is obtaining a Gastroenterology consult to look at other potential issues related to the nausea and vomiting, but it is suspected that it is related to discomfort from the scleral buckle. This should subside in time with analgesia. The patient will be re-evaluated tomorrow. Simone Conde M.D. DR: GA JOB#: [id number] CC:
[2017-04-05 04:00] VITALS: BP 149/67
[2017-04-05] MEDS: Ketorolac 30mg Inj IV PRN (05:16)
[2017-04-05] MEDS: NovoLOG Insulin Flexpen SUBQ SCH ×4 (06:06→20:35)
[2017-04-05] MEDS: HydrALAZINE 50mg tab ORAL SCH ×3 (06:06→22:00)
[2017-04-05 07:52] LABS: BASOPHILS % (AUTO) 0.3 % (0.0-2.0); EOSINOPHILS % (AUTO) 1.8 % (0.0-3.0); LYMPHOCYTES % (AUTO) 8.9 % (20.0-45.0); MEAN CORPUSCULAR HEMOGLOBIN 32.5 PG (27.0-31.0); MEAN CORPUSCULAR HGB CONC 35.5 G/DL (32.0-36.0); MEAN CORPUSCULAR VOLUME 91 FL (80-99); MEAN PLATELET VOLUME 10.2 FL (6.5-10.1); NEUTROPHILS % (AUTO) 82.9 % (45.0-75.0); PLATELET COUNT 129 K/UL (150-450); RED BLOOD COUNT 3.52 M/UL (4.70-6.10); RED CELL DISTRIBUTION WIDTH 14.4 % (11.6-14.8); WHITE BLOOD COUNT 6.4 K/UL (4.8-10.8)
[2017-04-05 07:54] LABS: ANION GAP 13 (5-15); CALCIUM 8.9 mg/dL (8.6-10.2); CARBON DIOXIDE 25 mEQ/L (20-30); CHLORIDE 99 mEQ/L (98-107); CREATININE 0.9 mg/dL (0.7-1.2); HEMOLYSIS 6; MAGNESIUM 1.9 mg/dL (1.7-2.5); POTASSIUM 3.9 mEQ/L (3.4-4.9); SODIUM 137 mEQ/L (135-145)
[2017-04-05 08:00] VITALS: BP 156/58
[2017-04-05] MEDS: Metoclopramide 10mg/2ml Inj IVP SCH ×3 (08:14→21:00)
[2017-04-05] MEDS: Lisinopril 20mg tab ORAL SCH (08:15)
[2017-04-05] MEDS: valACYclovir HCL 500mg tab ORAL SCH (08:15)
[2017-04-05] MEDS: Vitamin D 1000 IU Tab ORAL SCH (08:15)
[2017-04-05] MEDS: Cosopt Opth Soln 10 mL Btl LEFT EYE SCH ×3 (08:16→17:48)
[2017-04-05] MEDS: Furosemide 40mg tab ORAL SCH (08:16)
[2017-04-05] MEDS: Vigamox Opth Soln LEFT EYE SCH ×4 (08:17→20:19)
[2017-04-05] MEDS: Esomeprazole sodium 40mg vial IVP SCH (08:41)
[2017-04-05] MEDS: Hydrocortisone 2.5% Oint 30gm TOPIC SCH (08:42)
[2017-04-05 12:00] VITALS: BP 166/69
[2017-04-05] MEDS ORDERED: LORazepam Inj 2mg/ml 1ml IV PRN (14:15)
--- NOTE | 2017-04-05 15:31 | General Progress Note ---
Subjective Constitutional: Reports: malaise, weakness HEENT: Reports: eye pain Cardiovascular: Reports: no symptoms Respiratory: Reports: no symptoms Gastrointestinal/Abdominal: Reports: nausea, vomiting Genitourinary: Reports: no symptoms Neurologic/Psychiatric: Reports: headache Endocrine: Reports: no symptoms Hematologic/Lymphatic: Reports: no symptoms Allergies: Coded Allergies: No Known Allergies (Unverified , 02/28/17) Objective Last 24 Hour Vital Signs Date Time Temp Pulse Resp B/P (MAP) Pulse Ox O2 Delivery O2 Flow Rate FiO2 04/05/17 14:10 166/69 04/05/17 12:00 97.5 73 18 166/69 97 Room Air 04/05/17 08:15 149/67 04/05/17 08:00 97.9 79 18 156/58 97 Room Air 04/05/17 06:06 149/67 04/05/17 05:46 98.1 04/05/17 04:00 98.1 68 20 149/67 98 Room Air 04/05/17 00:00 98.1 71 19 134/50 96 Room Air 04/04/17 21:17 138/63 04/04/17 20:56 98.1 67 20 138/63 96 Room Air 04/04/17 16:45 148/68 04/04/17 16:14 98.6 71 20 171/73 98 Room Air Intake and Output 04/05/17 04/06/17 19:00 07:00 Intake Total 240 ml Balance 240 ml Intake Oral 240 ml Laboratory Tests 04/05/17 06:20: White Blood Count 6.4, Red Blood Count 3.52L, Hemoglobin 11.4L, Hematocrit 32.2L , Mean Corpuscular Volume 91, Mean Corpuscular Hemoglobin 32.5H, Mean Corpuscular Hemoglobin Concent 35.5, Red Cell Distribution Width 14.4, Platelet Count 129L, Mean Platelet Volume 10.2H, Neutrophils (%) (Auto) 82.9H, Lymphocytes (%) (Auto) 8.9L, Monocytes (%) (Auto) 6.0, Eosinophils (%) (Auto) 1.8, Basophils (%) (Auto) 0.3, Sodium Level 137, Potassium Level 3.9, Chloride Level 99, Carbon Dioxide Level 25, Anion Gap 13, Blood Urea Nitrogen 16, Creatinine 0.9, Estimat Glomerular Filtration Rate , Glucose Level 151H, Calcium Level 8.9, Magnesium Level 1.9 Height (Feet): 5 Height (Inches): 5.00 Weight (Pounds): 180 AYDEN ANGELES Apr 05, 2017 15:31
--- NOTE | 2017-04-05 15:37 | General Progress Note ---
Subjective Allergies: Coded Allergies: No Known Allergies (Unverified , 02/28/17) Objective Last 24 Hour Vital Signs Date Time Temp Pulse Resp B/P (MAP) Pulse Ox O2 Delivery O2 Flow Rate FiO2 04/05/17 14:10 166/69 04/05/17 12:00 97.5 73 18 166/69 97 Room Air 04/05/17 08:15 149/67 04/05/17 08:00 97.9 79 18 156/58 97 Room Air 04/05/17 06:06 149/67 04/05/17 05:46 98.1 04/05/17 04:00 98.1 68 20 149/67 98 Room Air 04/05/17 00:00 98.1 71 19 134/50 96 Room Air 04/04/17 21:17 138/63 04/04/17 20:56 98.1 67 20 138/63 96 Room Air 04/04/17 16:45 148/68 04/04/17 16:14 98.6 71 20 171/73 98 Room Air Intake and Output 04/05/17 04/06/17 19:00 07:00 Intake Total 240 ml Balance 240 ml Intake Oral 240 ml Laboratory Tests 04/05/17 06:20: White Blood Count 6.4, Red Blood Count 3.52L, Hemoglobin 11.4L, Hematocrit 32.2L , Mean Corpuscular Volume 91, Mean Corpuscular Hemoglobin 32.5H, Mean Corpuscular Hemoglobin Concent 35.5, Red Cell Distribution Width 14.4, Platelet Count 129L, Mean Platelet Volume 10.2H, Neutrophils (%) (Auto) 82.9H, Lymphocytes (%) (Auto) 8.9L, Monocytes (%) (Auto) 6.0, Eosinophils (%) (Auto) 1.8, Basophils (%) (Auto) 0.3, Sodium Level 137, Potassium Level 3.9, Chloride Level 99, Carbon Dioxide Level 25, Anion Gap 13, Blood Urea Nitrogen 16, Creatinine 0.9, Estimat Glomerular Filtration Rate , Glucose Level 151H, Calcium Level 8.9, Magnesium Level 1.9 Height (Feet): 5 Height (Inches): 5.00 Weight (Pounds): 180 General Appearance: no apparent distress, alert EENT: normal ENT inspection Neck: supple, normal inspection Cardiovascular: normal rate Respiratory/Chest: lungs clear Abdomen: soft, no organomegaly, no mass Extremities: non-tender, normal inspection Edema: no edema noted Arm (L), no edema noted Arm (R), no edema noted Leg (L), no edema noted Leg (R), no edema noted Pedal (L), no edema noted Pedal (R), no edema noted 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
[2017-04-05] MEDS ORDERED: NS 275ml ONE (15:59)
[2017-04-05] MEDS ORDERED: Tubing IV Secondary IV ONE (15:59)
[2017-04-05 16:00] VITALS: BP 151/56
--- NOTE | 2017-04-05 17:27 | General Progress Note ---
Assessment/Plan Assessment/Plan Assessment (1) Post-operative nausea and vomiting (2) Severe malnutrition (3) Dehydration Plan symptomatic treatment at this time continue erythromycin for GI motility zofran and reglan can try low dose Ativan prn, if refractory N/V maintain IVFs + electrolyte correction cont ppi d/c ultram and narcotics, as they could possibly contribute to N/V Subjective Allergies: Coded Allergies: No Known Allergies (Unverified , 02/28/17) Subjective above noted d/w DTR at bedside d/w optho still with nausea, vomited yesterday unable to eat (L) eye patched some pain - received 1 dose of ultram yesterday and a dose of toradol today Objective Last 24 Hour Vital Signs Date Time Temp Pulse Resp B/P (MAP) Pulse Ox O2 Delivery O2 Flow Rate FiO2 04/05/17 16:00 97.7 90 18 151/56 96 Room Air 04/05/17 14:10 166/69 04/05/17 12:00 97.5 73 18 166/69 97 Room Air 04/05/17 08:15 149/67 04/05/17 08:00 97.9 79 18 156/58 97 Room Air 04/05/17 06:06 149/67 04/05/17 05:46 98.1 04/05/17 04:00 98.1 68 20 149/67 98 Room Air 04/05/17 00:00 98.1 71 19 134/50 96 Room Air 04/04/17 21:17 138/63 04/04/17 20:56 98.1 67 20 138/63 96 Room Air Intake and Output 04/05/17 04/06/17 19:00 07:00 Intake Total 240 ml Balance 240 ml Intake Oral 240 ml Laboratory Tests 04/05/17 06:20: White Blood Count 6.4, Red Blood Count 3.52L, Hemoglobin 11.4L, Hematocrit 32.2L , Mean Corpuscular Volume 91, Mean Corpuscular Hemoglobin 32.5H, Mean Corpuscular Hemoglobin Concent 35.5, Red Cell Distribution Width 14.4, Platelet Count 129L, Mean Platelet Volume 10.2H, Neutrophils (%) (Auto) 82.9H, Lymphocytes (%) (Auto) 8.9L, Monocytes (%) (Auto) 6.0, Eosinophils (%) (Auto) 1.8, Basophils (%) (Auto) 0.3, Sodium Level 137, Potassium Level 3.9, Chloride Level 99, Carbon Dioxide Level 25, Anion Gap 13, Blood Urea Nitrogen 16, Creatinine 0.9, Estimat Glomerular Filtration Rate , Glucose Level 151H, Calcium Level 8.9, Magnesium Level 1.9 Height (Feet): 5 Height (Inches): 5.00 Weight (Pounds): 180 Objective WDWN AA man (L) eye patched Supple CTA RRR Soft ND NT no edema AILYN SANCHEZ Apr 05, 2017 17:27
[2017-04-05 20:00] VITALS: BP 156/65
[2017-04-05] MEDS: Levemir Flexpen SUBQ SCH (20:34)
[2017-04-05] MEDS: Enoxaparin 40mg Inj SUBQ SCH (20:49)
[2017-04-06] VITALS: BP 142/59
--- NOTE | 2017-04-06 00:45 | Progress Note ---
DATE: 04/05/2017 This is a postoperative day #3 report. SUBJECTIVE: The patient still complains of pain and occasional waves of nausea with some vomiting. OBJECTIVE: Vision still remain strong light perception in the left eye with a pressure of 20. There was full extraocular muscle movement with no evidence of restriction. Mild lid edema was seen and only 1+ to 2+ conjunctival injection was noted without significant chemosis. The anterior chamber remained deep and quiet with clear cornea. Fundus exam was unchanged with roughly an 80% silicone oil fill. The retina appeared still attached. ASSESSMENT: Persistent pain and nausea status post scleral buckle revision, left eye. PLAN: A long discussion was held with the family and they feel that they would be more comfortable with a transfer of the patient to [facility]. The ice cream freezer helper of Retina Surgery at [facility], Dr. Adan Medina was contacted along with his fellow Dr. Combs. They have agreed to accept the transfer and arrangements will be made to transfer the patient. Until then, he will be maintained on his current regimen of eyedrops. It was suggested by Dr. Medina that we consider stopping the anti-nausea and anti-pain medications for at least one cycle considering that the patient may not be reacting to these and could be suffering nausea, possibly related to the medications. This remains unclear. Again, preparations will be made for the patient's transfer to the care of doctors at [facility] in the [facility]. Simone Conde M.D. DR: GA JOB#: [id number] CC:
[2017-04-06] MEDS: Erythromycin Inj 50 MG in NS 55 ML IVPB SCH ×4 (02:00→20:52)
[2017-04-06] MEDS: Pred Forte 1% Opth Susp 1ml LEFT EYE SCH ×7 (02:18→12:15)
[2017-04-06 04:00] VITALS: BP 166/75
[2017-04-06] MEDS: HydrALAZINE 50mg tab ORAL SCH ×4 (05:15→21:26)
[2017-04-06] MEDS: NovoLOG Insulin Flexpen SUBQ SCH ×4 (06:30→20:58)
[2017-04-06 08:08] VITALS: BP 157/64
[2017-04-06] MEDS: Esomeprazole sodium 40mg vial IVP SCH (08:24)
[2017-04-06] MEDS: Metoclopramide 10mg/2ml Inj IVP SCH ×2 (08:34→20:53)
[2017-04-06] MEDS: Hydrocortisone 2.5% Oint 30gm TOPIC SCH (09:45)
[2017-04-06] MEDS: Cosopt Opth Soln 10 mL Btl LEFT EYE SCH ×3 (09:45→18:21)
[2017-04-06] MEDS: Vitamin D 1000 IU Tab ORAL SCH (09:46)
[2017-04-06] MEDS: valACYclovir HCL 500mg tab ORAL SCH (09:46)
[2017-04-06] MEDS: Lisinopril 20mg tab ORAL SCH (09:46)
[2017-04-06] MEDS: Furosemide 40mg tab ORAL SCH (09:58)
[2017-04-06] MEDS: Vigamox Opth Soln LEFT EYE SCH ×4 (09:58→20:51)
[2017-04-06 12:00] VITALS: BP 152/76
[2017-04-06] MEDS ORDERED: Pred Forte 1% Opth Susp 1ml LEFT EYE SCH ×2 (13:00→18:00)
--- NOTE | 2017-04-06 15:44 | General Progress Note ---
Subjective Constitutional: Reports: malaise, weakness Cardiovascular: Reports: no symptoms Respiratory: Reports: no symptoms Gastrointestinal/Abdominal: Reports: constipated, nausea, poor fluid intake Neurologic/Psychiatric: Reports: headache Allergies: Coded Allergies: No Known Allergies (Unverified , 02/28/17) Objective Last 24 Hour Vital Signs Date Time Temp Pulse Resp B/P (MAP) Pulse Ox O2 Delivery O2 Flow Rate FiO2 04/06/17 14:55 152/76 04/06/17 14:49 Room Air 04/06/17 12:00 97.2 82 18 152/76 74 04/06/17 10:57 98.1 04/06/17 09:46 157/64 04/06/17 08:08 98.1 80 18 157/64 95 Room Air 04/06/17 05:15 174/76 04/06/17 04:00 98.1 69 20 166/75 97 Room Air 04/06/17 00:00 97.0 68 18 142/59 98 Room Air 04/05/17 22:00 128/78 04/05/17 20:00 98.1 67 18 156/65 98 Room Air 04/05/17 16:00 97.7 90 18 151/56 96 Room Air Intake and Output 04/06/17 04/07/17 19:00 07:00 Intake Total 1070 ml Balance 1070 ml Intake Oral 360 ml IV Total 710 ml # Voids 1 Height (Feet): 5 Height (Inches): 5.00 Weight (Pounds): 180 AYDEN ANGELES Apr 06, 2017 15:44
[2017-04-06 15:51] VITALS: BP 161/72
--- NOTE | 2017-04-06 15:51 | General Progress Note ---
Subjective Allergies: Coded Allergies: No Known Allergies (Unverified , 02/28/17) Objective Last 24 Hour Vital Signs Date Time Temp Pulse Resp B/P (MAP) Pulse Ox O2 Delivery O2 Flow Rate FiO2 04/06/17 14:55 152/76 04/06/17 14:49 Room Air 04/06/17 12:00 97.2 82 18 152/76 74 04/06/17 10:57 98.1 04/06/17 09:46 157/64 04/06/17 08:08 98.1 80 18 157/64 95 Room Air 04/06/17 05:15 174/76 04/06/17 04:00 98.1 69 20 166/75 97 Room Air 04/06/17 00:00 97.0 68 18 142/59 98 Room Air 04/05/17 22:00 128/78 04/05/17 20:00 98.1 67 18 156/65 98 Room Air 04/05/17 16:00 97.7 90 18 151/56 96 Room Air Intake and Output 04/06/17 04/07/17 19:00 07:00 Intake Total 1070 ml Balance 1070 ml Intake Oral 360 ml IV Total 710 ml # Voids 1 Height (Feet): 5 Height (Inches): 5.00 Weight (Pounds): 180 General Appearance: alert EENT: normal ENT inspection, pharynx normal Neck: non-tender, normal inspection Cardiovascular: regular rhythm Respiratory/Chest: lungs clear, no respiratory distress Abdomen: non tender, soft Extremities: non-tender Edema: no edema noted Arm (L), no edema noted Arm (R), no edema noted Leg (L), no edema noted Leg (R), no edema noted Pedal (L), no edema noted Pedal (R), no edema noted 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 Chek lab in Am. Up in chair,Dulcolax supp10 mg. AYDEN ANGELES Apr 06, 2017 15:51
--- NOTE | 2017-04-06 17:16 | General Progress Note ---
Assessment/Plan Assessment/Plan Assessment (1) Post-operative nausea and vomiting - resolving (2) Severe malnutrition (3) Dehydration Plan symptomatic treatment at this time continue erythromycin for GI motility zofran and reglan can try low dose Ativan prn, if refractory N/V maintain IVFs + electrolyte correction cont ppi Subjective Allergies: Coded Allergies: No Known Allergies (Unverified , 02/28/17) Subjective better able to tolerate some po's IVF running d/W DTR and Optho Objective Last 24 Hour Vital Signs Date Time Temp Pulse Resp B/P (MAP) Pulse Ox O2 Delivery O2 Flow Rate FiO2 04/06/17 15:51 98.6 64 18 161/72 98 Room Air 04/06/17 14:55 152/76 04/06/17 14:49 Room Air 04/06/17 12:00 97.2 82 18 152/76 74 04/06/17 10:57 98.1 04/06/17 09:46 157/64 04/06/17 08:08 98.1 80 18 157/64 95 Room Air 04/06/17 05:15 174/76 04/06/17 04:00 98.1 69 20 166/75 97 Room Air 04/06/17 00:00 97.0 68 18 142/59 98 Room Air 04/05/17 22:00 128/78 04/05/17 20:00 98.1 67 18 156/65 98 Room Air Intake and Output 04/06/17 04/07/17 19:00 07:00 Intake Total 1180 ml Balance 1180 ml Intake Oral 360 ml IV Total 820 ml # Voids 1 Height (Feet): 5 Height (Inches): 5.00 Weight (Pounds): 180 Objective WDWN AA man (L) eye closed Supple CTA RRR Soft ND NT no edema AILYN SANCHEZ Apr 06, 2017 17:16
[2017-04-06 20:00] VITALS: BP 155/66
[2017-04-06] MEDS: Enoxaparin 40mg Inj SUBQ SCH (20:54)
[2017-04-06] MEDS: Levemir Flexpen SUBQ SCH (20:56)
[2017-04-07] VITALS: BP 149/72
[2017-04-07] MEDS: Erythromycin Inj 50 MG in NS 55 ML IVPB SCH ×2 (02:39→08:21)
[2017-04-07 04:00] VITALS: BP 152/74
[2017-04-07] MEDS: HydrALAZINE 50mg tab ORAL SCH ×2 (05:54→13:27)
[2017-04-07 06:18] LABS: BASOPHILS % (AUTO) 0.6 % (0.0-2.0); EOSINOPHILS % (AUTO) 2.7 % (0.0-3.0); LYMPHOCYTES % (AUTO) 11.2 % (20.0-45.0); MEAN CORPUSCULAR HEMOGLOBIN 32.2 PG (27.0-31.0); MEAN CORPUSCULAR HGB CONC 35.3 G/DL (32.0-36.0); MEAN CORPUSCULAR VOLUME 91 FL (80-99); MEAN PLATELET VOLUME 8.1 FL (6.5-10.1); MONOCYTES % (AUTO) 8.7 % (1.0-10.0); NEUTROPHILS % (AUTO) 76.8 % (45.0-75.0); PLATELET COUNT 150 K/UL (150-450); RED BLOOD COUNT 3.37 M/UL (4.70-6.10); RED CELL DISTRIBUTION WIDTH 14.2 % (11.6-14.8); WHITE BLOOD COUNT 5.7 K/UL (4.8-10.8)
[2017-04-07] MEDS: NovoLOG Insulin Flexpen SUBQ SCH ×2 (06:30→11:30)
[2017-04-07 06:36] LABS: ALANINE AMINOTRANSFERASE 8 U/L (3-41); ANION GAP 9 (5-15); ASPARTATE AMINO TRANSFERASE 11 U/L (5-40); CALCIUM 8.8 mg/dL (8.6-10.2); CARBON DIOXIDE 28 mEQ/L (20-30); CHLORIDE 102 mEQ/L (98-107); CREATININE 0.6 mg/dL (0.7-1.2); HEMOLYSIS 1; POTASSIUM 3.4 mEQ/L (3.4-4.9); SODIUM 139 mEQ/L (135-145); TOTAL PROTEIN 5.6 g/dL (6.6-8.7)
[2017-04-07 08:00] VITALS: BP 184/75
[2017-04-07 08:11] LABS: ERYTHROCYTE SEDIMENTATION RATE 78 MM/HR (0-30)
[2017-04-07] MEDS: Esomeprazole sodium 40mg vial IVP SCH (08:21)
[2017-04-07] MEDS: Cosopt Opth Soln 10 mL Btl LEFT EYE SCH ×2 (08:21→12:26)
[2017-04-07] MEDS: Hydrocortisone 2.5% Oint 30gm TOPIC SCH (08:22)
[2017-04-07] MEDS: Vigamox Opth Soln LEFT EYE SCH ×2 (08:22→12:26)
[2017-04-07] MEDS: Furosemide 40mg tab ORAL SCH (08:23)
[2017-04-07] MEDS: Lisinopril 20mg tab ORAL SCH (08:23)
[2017-04-07] MEDS: Vitamin D 1000 IU Tab ORAL SCH (08:23)
[2017-04-07] MEDS: Metoclopramide 10mg/2ml Inj IVP SCH (08:23)
[2017-04-07] MEDS: valACYclovir HCL 500mg tab ORAL SCH (08:23)
[2017-04-07] MEDS: Ketorolac 30mg Inj IV PRN (08:57)
--- NOTE | 2017-04-07 11:08 | GI Progress Note ---
Assessment/Plan Problems: (1) Post-operative nausea and vomiting ICD Codes: R11.2 - Nausea with vomiting, unspecified; Z98.890 - Other specified postprocedural states SNOMED: 8203080 (2) Severe malnutrition ICD Codes: E43 - Unspecified severe protein-calorie malnutrition SNOMED: 66835128 (3) Dehydration ICD Codes: E86.0 - Dehydration SNOMED: 30098925 Status: progressing Status Narrative Discussed with Dr. Garcia. Assessment/Plan symptomatic treatment at this time continue erythromycin for GI motility zofran and reglan can try low dose Ativan prn, if refractory N/V maintain IVFs + electrolyte correction cont ppi fu labs Subjective Subjective limited Objective Last 24 Hour Vital Signs Date Time Temp Pulse Resp B/P (MAP) Pulse Ox O2 Delivery O2 Flow Rate FiO2 04/07/17 08:23 184/75 04/07/17 08:00 97.5 68 18 184/75 97 Room Air 04/07/17 05:54 152/74 04/07/17 04:00 97.8 63 16 152/74 99 Room Air 04/07/17 00:00 97.5 68 18 149/72 97 Room Air 04/06/17 21:26 155/66 04/06/17 20:00 97.9 65 16 155/66 100 Room Air 04/06/17 19:20 98.6 04/06/17 15:51 98.6 64 18 161/72 98 Room Air 04/06/17 14:55 152/76 04/06/17 14:49 Room Air 04/06/17 12:00 97.2 82 18 152/76 74 Intake and Output 04/07/17 04/08/17 19:00 07:00 Intake Total 240 ml Balance 240 ml Intake Oral 240 ml Laboratory Tests Test 04/07/17 05:40 White Blood Count 5.7 K/UL (4.8-10.8) Red Blood Count 3.37 M/UL (4.70-6.10) L Hemoglobin 10.8 G/DL (14.2-18.0) L Hematocrit 30.7 % (42.0-52.0) L Mean Corpuscular Volume 91 FL (80-99) Mean Corpuscular Hemoglobin 32.2 PG (27.0-31.0) H Mean Corpuscular Hemoglobin Concent 35.3 G/DL (32.0-36.0) Red Cell Distribution Width 14.2 % (11.6-14.8) Platelet Count 150 K/UL (150-450) Mean Platelet Volume 8.1 FL (6.5-10.1) Neutrophils (%) (Auto) 76.8 % (45.0-75.0) H Lymphocytes (%) (Auto) 11.2 % (20.0-45.0) L Monocytes (%) (Auto) 8.7 % (1.0-10.0) Eosinophils (%) (Auto) 2.7 % (0.0-3.0) Basophils (%) (Auto) 0.6 % (0.0-2.0) Erythrocyte Sedimentation Rate 78 MM/HR (0-30) H Sodium Level 139 mEQ/L (135-145) Potassium Level 3.4 mEQ/L (3.4-4.9) Chloride Level 102 mEQ/L (98-107) Carbon Dioxide Level 28 mEQ/L (20-30) Anion Gap 9 (5-15) Blood Urea Nitrogen 14 mg/dL (7-23) Creatinine 0.6 mg/dL (0.7-1.2) L Estimat Glomerular Filtration Rate mL/min (>60) Glucose Level 90 mg/dL (74-106) Calcium Level 8.8 mg/dL (8.6-10.2) Total Bilirubin 0.6 mg/dL (0.0-1.2) Aspartate Amino Transf (AST/SGOT) 11 U/L (5-40) Alanine Aminotransferase (ALT/SGPT) 8 U/L (3-41) Alkaline Phosphatase 44 U/L (40-129) Total Protein 5.6 g/dL (6.6-8.7) L Albumin 2.9 g/dL (3.5-5.2) L Globulin 2.7 g/dL Albumin/Globulin Ratio 1.0 (1.0-2.7) Carcinoembryonic Antigen 3.2 ng/mL H Height (Feet): 5 Height (Inches): 5.00 Weight (Pounds): 180 General Appearance: no apparent distress, thin Cardiovascular: normal rate Respiratory/Chest: no respiratory distress Abdominal Exam: normal bowel sounds, non tender, no organomegaly Safia Renteria N.P. Apr 07, 2017 11:08
[2017-04-07 11:53] VITALS: BP 167/68
[2017-04-07 13:27] VITALS: BP 162/76
[2017-04-07] MEDS ORDERED: TRAMADOL HCL50 MG ORAL (15:07)
[2017-04-07] MEDS ORDERED: XALATAN2.5 ML LEFT EYE (15:23)
[2017-04-07] MEDS ORDERED: VIGAMOX1 DROP LEFT EYE (15:24)
[2017-04-07] MEDS ORDERED: COSOPT1 DRO2 LEFT EYE (15:25)
--- NOTE | 2017-04-07 18:48 | Cardiology Report ---
APPROVED REPORT EKG Measurement Heart [id number] Normal sinus rhythm Possible Left atrial enlargement Borderline ECG
--- NOTE | 2017-04-08 00:15 | Progress Note ---
This is postoperative day #3. SUBJECTIVE: Much less nausea and pain without vomiting in the last 14 hours. OBJECTIVE: EYES: Vision still light projection in the left eye with the pressure measured at 15. External examination showed almost complete resorption of lid edema with full range of motion. Penlight examination showed a clear cornea. There was 1+ conjunctival injection without evidence of infection. The anterior chamber was deep and clear. Fundus examination was unchanged with roughly an 80% silicone oil fill and the retina that through the small pupil appearing intact. ASSESSMENT AND PLAN: Gradual improvement in pain and discomfort. It appears that the combination of limiting the narcotic medications and adding Ativan as well as time have caused a gradual improvement in this patient. We still have a transfer pending to [facility] at the family's request. This has been delayed this weekend due to bed availability and inability to get clearance from the patient's insurance company. This should be taken care of on Friday. The patient has also complained somewhat of pain after installation of prednisolone drops. These will be discontinued. It was felt that Kenalog given during the time of the surgery will prevent the recurrence of rebound inflammation. The further plan again is to have the patient transferred on Friday. Simone Conde M.D. DR: Karissa JOB#: [id number] CC:
--- NOTE | 2017-04-08 07:15 | Progress Note ---
DATE: 04/07/2017 Subjective: The patient complains of still occasional pain and some degree of constipation, but is up in a chair, eating with no nausea and vomiting. Objective: Vision was hand motions in the left eye with a pressure of 20. Extraocular movements were good with limited of any lid edema. Penlight examination showed trace conjunctival injection. There was no evidence of infection with the anterior chamber clear. Fundus examination showed the retina to be attached. There was a small vitreous hemorrhage between the oil and the blood at 6 o'clock. ASSESSMENT: Improved. Plan: A long discussion was held with the patient's daughter. She felt that it might be more prudent to take him home today if medical consult felt that he was okay for discharge. If this is the case, we will keep him on topical Vigamox, latanoprost, and Cosopt. He would choose whether to be followed at my office or as an outpatient at the [facility] where we were seeking to transfer. Simone Conde M.D. DR: Brandon JOB#: [id number] CC:
--- NOTE | 2017-04-08 08:34 | General Progress Note ---
Subjective Constitutional: Reports: no symptoms HEENT: Reports: no symptoms Cardiovascular: Reports: no symptoms Respiratory: Reports: no symptoms Gastrointestinal/Abdominal: Reports: poor appetite Genitourinary: Reports: no symptoms Neurologic/Psychiatric: Reports: headache Endocrine: Reports: no symptoms Hematologic/Lymphatic: Reports: no symptoms Allergies: Coded Allergies: No Known Allergies (Unverified , 02/28/17) Objective Last 24 Hour Vital Signs Date Time Temp Pulse Resp B/P (MAP) Pulse Ox O2 Delivery O2 Flow Rate FiO2 04/07/17 13:27 162/76 04/07/17 11:53 98.1 61 18 167/68 98 Room Air Height (Feet): 5 Height (Inches): 5.00 Weight (Pounds): 180 AYDEN ANGELES Apr 08, 2017 08:34
--- NOTE | 2017-04-08 08:37 | General Progress Note ---
Subjective Allergies: Coded Allergies: No Known Allergies (Unverified , 02/28/17) Objective Last 24 Hour Vital Signs Date Time Temp Pulse Resp B/P (MAP) Pulse Ox O2 Delivery O2 Flow Rate FiO2 04/07/17 13:27 162/76 04/07/17 11:53 98.1 61 18 167/68 98 Room Air Height (Feet): 5 Height (Inches): 5.00 Weight (Pounds): 180 General Appearance: alert Neck: supple Cardiovascular: normal rate Respiratory/Chest: lungs clear Abdomen: soft - stabl to be d/c home., no organomegaly AYDEN ANGELES Apr 08, 2017 08:37
--- NOTE | 2017-04-09 12:40 | Discharge Summary ---
DATE OF ADMISSION: 04/03/2017 DATE OF DISCHARGE: 04/07/2017 NOTE: "POOR AUDIO QUALITY" Brief History and hospital course: This 86-year-old male was admitted through the emergency room complaining of severe left-sided headache, vomiting, and nausea. The patient has had left eye surgery on 04/02/2017 at [facility]. The patient has had retinal detachment of left eye. The surgeon is Dr. Simone Conde. The patient's past medical history and review of systems are remarkable for history of hypertension, insulin-dependent diabetes mellitus, and history of pemphigus vulgaris. No history of anemia or GI bleeding. DISCHARGE DIAGNOSES: 1. Vomiting and nausea secondary to left intraocular surgery. 2. Diabetes mellitus, insulin dependent. 3. Hypertension. 4. Pemphigus vulgaris. The patient had CT scan of the brain, age-related atrophy. He was seen by ophthalmology, Dr. Simone Conde and gastroenterology, Dr. Garcia. The patient had abdominal ultrasound which was negative. Liver function tests and laboratory were negative. Sedimentation rate elevated to 78 may be as a result of pemphigus. The patient's condition improved. He was treated with Zofran injectable and Nexium 40 mg IV. He was on sliding scale of insulin, NovoLog, and also was receiving prednisone 10 mg daily and also gabapentin for peripheral neuropathy at 300 mg daily. The patient's condition improved. His headache controlled. The patient was discharged home with activity as tolerated. Discussed with daughters at bedside and the patient needed to follow ophthalmology and continue eyedrops as well. Prescription given for Ultram 50 mg p.r.n. q.6 hours p.o. PROGNOSIS: Guarded. Sumanth Jaime M.D. DR: Brandie JOB#: [id number] CC:
== END 2017-04-07 15:43 | disposition home or self-care (01) | DRG 73 ==
LOC: EDBD 11:49 → EMR 12:20 → EDBEDREQ 12:35 → 4W 13:30 → EDBEDREQ 13:52
PROC: 08953ZZ Drainage of Left Vitreous, Percutaneous Approach (ICD-10-PCS; 2017-04-03)
PROC: 08933ZZ Drainage of Left Anterior Chamber, Percutaneous Approach (ICD-10-PCS; principal; 2017-04-03 21:00)
DX: H40.052 Ocular hypertension, left eye (principal); E43 Unspecified severe protein-calorie malnutrition; E86.0 Dehydration; E11.9 Type 2 diabetes mellitus without complications; H31.41 Hemorrhagic choroidal detachment; R11.2 Nausea with vomiting, unspecified; Z79.4 Long term (current) use of insulin; L10.0 Pemphigus vulgaris; I10 Essential (primary) hypertension; Z98.890 Other specified postprocedural states
CPT/HCPCS: 36415; 70450; 71010; 76700; 80048; 80053; 80069; 80076; 81001; 82378; 82962; 83690; 83735; 84484; 85007; 85025; 85651; 87086; 93005; 94003; 94150; 99285; J1815; J2250; J2405; J2765; S5561